=== PATIENT | male | born 1960 | race Caucasian/White ===

== ENCOUNTER 2016-06-27 10:57 | Emergency (ER) | payer OTHER ==
--- NOTE | 2016-06-27 11:47 | EDDOCDS ---
Physician Documentation [facility] Name: Ramos Corrigan Age: 55 yrs Sex: Male : 1960 Arrival Date: 06/27/2016 Time: 10:57 Bed TR8 Private MD: Roxana Lopez A Disposition: 06/27/16 11:39 Discharged to Home/Self Care. Impression: Acute nasopharyngitis [common cold]. - Condition is Stable. - Discharge Instructions: Upper Respiratory Infection, Adult, Cough, Adult, [id number]. - Prescriptions for Guaifenesin- DM 10-100 mg/5 mL Oral Liquid - take 10 milliliter by ORAL route every 6 hours As needed; 120 milliliter. Afrin (oxymetazoline) 0.05 % Nasal Aerosol, [place] - spray 2 sprays by INTRANASAL route 2 times per day use only for 5 days.; 1 Container. benzonatate 200 mg Oral Capsule - take 1 capsule by ORAL route 3 times per day As needed; 30 capsule. - Medication Reconciliation form. - Follow up: Roxana Lopez; When: Call to arrange an appointment; Reason: Recheck today's complaints, Continuance of care. - Problem is new. - Symptoms are unchanged. Historical: - Allergies: no known allergies; - Home Meds: 1. Advair Diskus 250-50 mcg/dose Inhl dsdv 1 puff 2 times per day 2. aspirin 81 mg Oral TbEC 1 tab once daily 3. atenolol 25 mg Oral tab 1 tab once daily 4. atorvastatin 40 mg oral tab 1 tab once daily 5. Flomax 0.4 mg Oral cp24 1 cap once daily 6. hydroxyzine HCl 25 mg Oral tab 1 tab nightly 7. lisinopril 2.5 mg Oral tab 1 tab once daily 8. metformin 500 mg oral tr24 twice a day 9. omeprazole 20 mg Oral cpDR 1 cap once daily 10. Singulair 10 mg Oral tab 1 tab once daily 11. tramadol 50 mg Oral tab every 6 hours 1-2 tabs 12. Ventolin Rotahaler/Rotacaps Inhl 200 mcg as needed 13. Zyrtec 10 mg Oral tab 1 tab once daily - PMHx: COPD; Diabetes - NIDDM: controlled; Hypercholesterolemia; Hypertension; BPH; Kidney stones; - PSHx: Gall Bladder Removal; - Social history: Smoking status: Patient states former smoker of tobacco. No barriers to communication noted, The patient speaks fluent Sami, Speaks appropriately for age. - Family history: Not pertinent. - : The pt / caregiver states he / she is not on anticoagulants. Home medication list is obtained from the patient. - Exposure Risk Screening:: None identified. Vital Signs: 06/27 10:58 BP 113 / 71; Pulse 85; Resp 18; Temp 98.4(O); Pulse Ox 96% on R/A; Weight 81.65 kg / ct3 180.01 lbs (R); Height 5 ft. 6 in. (167.64 cm) (R); Pain 710; 10:58 Body Mass Index 29.05 (81.65 kg, 167.64 cm) ct3 Signatures: Aminta Landin, RN RN Bia Mensah RN RN kr3 Raghav Veloz, PALuis ArmandoC PA-C cc10 BERTA
--- NOTE | 2016-06-27 11:47 | EDDOCDS ---
Nurse's Notes [facility] Name: Ramos Corrigan Age: 55 yrs Sex: Male : 1960 Arrival Date: 06/27/2016 Time: 10:57 Bed TR8 Private MD: Roxana Lopez A Diagnosis: Acute nasopharyngitis [common cold] Presentation: 06/27 11:02 Presenting complaint: Patient states: headache, earache and stuffed up since last srm night. left ear worse than right. Adult Sepsis Screening: The patient does not have new or worsening altered mentation. Patient's respiratory rate is less than 22. Systolic blood pressure is greater than 100. Patient has a qSOFA score of 0- Negative Sepsis Screen. Suicide/Homicide risk assessment- the patient denies having any suicidal and/or homicidal ideations and does not present with any other emotional, behavioral or mental health complaints. 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 Transition of care: patient was not received from another setting of care. 11:02 Acuity: TRUMAN Level 4 [facility] 11:02 Method Of Arrival: Walkin/Carried/Asstd srm Triage Assessment: 11:04 General: Appears in no apparent distress, Behavior is appropriate for age, cooperative. srm Pain: Pain currently is 7 out of 10 on a pain scale. HIV screening NA for this visit Offered previously. Historical: - Allergies: no known allergies; - Home Meds: 1. Advair Diskus 250-50 mcg/dose Inhl dsdv 1 puff 2 times per day 2. aspirin 81 mg Oral TbEC 1 tab once daily 3. atenolol 25 mg Oral tab 1 tab once daily 4. atorvastatin 40 mg oral tab 1 tab once daily 5. Flomax 0.4 mg Oral cp24 1 cap once daily 6. hydroxyzine HCl 25 mg Oral tab 1 tab nightly 7. lisinopril 2.5 mg Oral tab 1 tab once daily 8. metformin 500 mg oral tr24 twice a day 9. omeprazole 20 mg Oral cpDR 1 cap once daily 10. Singulair 10 mg Oral tab 1 tab once daily 11. tramadol 50 mg Oral tab every 6 hours 1-2 tabs 12. Ventolin Rotahaler/Rotacaps Inhl 200 mcg as needed 13. Zyrtec 10 mg Oral tab 1 tab once daily - PMHx: COPD; Diabetes - NIDDM: controlled; Hypercholesterolemia; Hypertension; BPH; Kidney stones; - PSHx: Gall Bladder Removal; - Social history: Smoking status: Patient states former smoker of tobacco. No barriers to communication noted, The patient speaks fluent [place], Speaks appropriately for age. - Family history: Not pertinent. - : The pt / caregiver states he / she is not on anticoagulants. Home medication list is obtained from the patient. - Exposure Risk Screening:: None identified. Screenin:45 Screening information is obtained from the patient. Fall risk: No risks identified. kr3 Assistance ADL's: requires no assistance with activities of daily living. Abuse/DV Screen: The patient / caregiver reports he/she is: not in a situation that causes fear, pain or injury. Nutritional screening: No deficits noted. Advance Directives: Currently, there is no health care proxy. home support is adequate. Assessment: 11:46 Reassessment: Patient appears in no apparent distress at this time. Respiratory: Airway kr3 is patent Respiratory effort is even. Derm: Skin is normal. Vital Signs: 10:58 BP 113 / 71; Pulse 85; Resp 18; Temp 98.4(O); Pulse Ox 96% on R/A; Weight 81.65 kg (R); ct3 Height 5 ft. 6 in. (167.64 cm) (R); Pain 7/10; 10:58 Body Mass Index 29.05 (81.65 kg, 167.64 cm) ct3 Vitals: 10:58 Log In Time: June 27, 2016 at 10:56. ct3 ED Course: 10:58 Patient visited by Dulce Sandoval PCA. ct3 10:58 Roxana Lopez is Private Physician. ct3 10:58 Patient moved to Waiting ct3 10:59 Patient moved to Pre RCE ct3 11:02 Triage Initiated srm 11:30 Patient moved to Triage 3 ar3 11:32 [facility] cc[facility] 11:32 Damien Shaw MD is Attending Physician. cc10 11:34 Patient visited by Raghav Veloz PA-C. cc10 11:34 Patient visited by Raghav Veloz PA-C. cc10 11:39 Roxana Lopez is Referral Physician. cc10 11:45 The patient / caregiver is instructed regarding the plan of care and ED course. Patient kr3 has correct armband on for positive identification. 11:45 No IV's were initiated during this patient's visit. No procedures done that require kr3 assistance. 11:46 Patient moved to TR8 ar3 Order Results: There are currently no results for this order. Outcome: 11:39 Discharge ordered by Provider. cc10 11:45 Discharge Assessment: patient administered narcotics - no. The following High Risk kr3 Discharge criteria are identified: None. Discharged to home ambulatory. Condition: stable. Discharge instructions given to patient, Instructed on discharge instructions, follow up and referral plans. medication usage, Demonstrated understanding of instructions, medications, Pt was receptive of discharge instructions/ teaching. Prescriptions given X 3. No special radiology studies were completed. Property sent home with patient. 11:46 Patient left the ED. kr3 Signatures: Aminta Landin, RN RN srm Bia Gregory RN RN kr3 La Ramírez, BLACKING MACHINE OPERATOR BLACKING MACHINE OPERATOR ar3 Dulce Sandoval, BLACKING MACHINE OPERATOR BLACKING MACHINE OPERATOR ct3 Raghav Veloz PA-C PAKatelin cc10 MTDD
--- NOTE | 2016-06-29 12:47 | EDDOCDS ---
Nurse's Notes [facility] Name: Ramos Corrigan Age: 55 yrs Sex: Male : 1960 Arrival Date: 06/27/2016 Time: 10:57 Bed TR8 Private MD: Roxana Lopez A Diagnosis: Acute nasopharyngitis [common cold] Presentation: 06/27 11:02 Presenting complaint: Patient states: headache, earache and stuffed up since last srm night. left ear worse than right. Adult Sepsis Screening: The patient does not have new or worsening altered mentation. Patient's respiratory rate is less than 22. Systolic blood pressure is greater than 100. Patient has a qSOFA score of 0- Negative Sepsis Screen. Suicide/Homicide risk assessment- the patient denies having any suicidal and/or homicidal ideations and does not present with any other emotional, behavioral or mental health complaints. 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 Transition of care: patient was not received from another setting of care. 11:02 Acuity: TRUMAN Level 4 [facility] 11:02 Method Of Arrival: Walkin/Carried/Asstd srm Triage Assessment: 11:04 General: Appears in no apparent distress, Behavior is appropriate for age, cooperative. srm Pain: Pain currently is 7 out of 10 on a pain scale. HIV screening NA for this visit Offered previously. Historical: - Allergies: no known allergies; - Home Meds: 1. Advair Diskus 250-50 mcg/dose Inhl dsdv 1 puff 2 times per day 2. aspirin 81 mg Oral TbEC 1 tab once daily 3. atenolol 25 mg Oral tab 1 tab once daily 4. atorvastatin 40 mg oral tab 1 tab once daily 5. Flomax 0.4 mg Oral cp24 1 cap once daily 6. hydroxyzine HCl 25 mg Oral tab 1 tab nightly 7. lisinopril 2.5 mg Oral tab 1 tab once daily 8. metformin 500 mg oral tr24 twice a day 9. omeprazole 20 mg Oral cpDR 1 cap once daily 10. Singulair 10 mg Oral tab 1 tab once daily 11. tramadol 50 mg Oral tab every 6 hours 1-2 tabs 12. Ventolin Rotahaler/Rotacaps Inhl 200 mcg as needed 13. Zyrtec 10 mg Oral tab 1 tab once daily - PMHx: COPD; Diabetes - NIDDM: controlled; Hypercholesterolemia; Hypertension; BPH; Kidney stones; - PSHx: Gall Bladder Removal; - Social history: Smoking status: Patient states former smoker of tobacco. No barriers to communication noted, The patient speaks fluent Nauruan, Speaks appropriately for age. - Family history: Not pertinent. - : The pt / caregiver states he / she is not on anticoagulants. Home medication list is obtained from the patient. - Exposure Risk Screening:: None identified. Screenin:45 Screening information is obtained from the patient. Fall risk: No risks identified. kr3 Assistance ADL's: requires no assistance with activities of daily living. Abuse/DV Screen: The patient / caregiver reports he/she is: not in a situation that causes fear, pain or injury. Nutritional screening: No deficits noted. Advance Directives: Currently, there is no health care proxy. home support is adequate. Assessment: 11:46 Reassessment: Patient appears in no apparent distress at this time. Respiratory: Airway kr3 is patent Respiratory effort is even. Derm: Skin is normal. Vital Signs: 10:58 BP 113 / 71; Pulse 85; Resp 18; Temp 98.4(O); Pulse Ox 96% on R/A; Weight 81.65 kg (R); ct3 Height 5 ft. 6 in. (167.64 cm) (R); Pain 7/10; 10:58 Body Mass Index 29.05 (81.65 kg, 167.64 cm) ct3 Vitals: 10:58 Log In Time: June 27, 2016 at 10:56. ct3 ED Course: 10:58 Patient visited by Dulce Sandoval PCA. ct3 10:58 Roxana Lopez is Private Physician. ct3 10:58 Patient moved to Waiting ct3 10:59 Patient moved to Pre RCE ct3 11:02 Triage Initiated srm 11:30 Patient moved to Triage 3 ar3 11:32 [facility] Vel[facility] cc[facility] 11:32 Damien Shaw MD is Attending Physician. cc10 11:34 Patient visited by Raghav eVloz PA-C. cc10 11:34 Patient visited by Raghav Veloz PA-C. cc10 11:39 Roxana Lopez is Referral Physician. cc10 11:45 The patient / caregiver is instructed regarding the plan of care and ED course. Patient kr3 has correct armband on for positive identification. 11:45 No IV's were initiated during this patient's visit. No procedures done that require kr3 assistance. 11:46 Patient moved to TR8 ar3 11:49 [facility] Payment Agreement was scanned into [employer] and attached to record. jp5 15:41 T-Sheet-- Draft Copy was scanned into [employer] and attached to record. gb Order Results: There are currently no results for this order. Outcome: 11:39 Discharge ordered by Provider. cc10 11:45 Discharge Assessment: patient administered narcotics - no. The following High Risk kr3 Discharge criteria are identified: None. Discharged to home ambulatory. Condition: stable. Discharge instructions given to patient, Instructed on discharge instructions, follow up and referral plans. medication usage, Demonstrated understanding of instructions, medications, Pt was receptive of discharge instructions/ teaching. Prescriptions given X 3. No special radiology studies were completed. Property sent home with patient. 11:46 Patient left the ED. kr3 Signatures: Aminta Landin, RN RN [facility] Brigida Montenegro, Reg Reg gb Bia Gregory,MARITZA SALAS kr3 La Ramírez, SOLE LEATHER CUTTING MACHINE OPERATOR SOLE LEATHER CUTTING MACHINE OPERATOR ar3 Dulce Sandoval, SOLE LEATHER CUTTING MACHINE OPERATOR SOLE LEATHER CUTTING MACHINE OPERATOR ct3 Raghav Veloz PA-C PA-C cc10 Erik Everett jp5 Chart Complete MTDD
--- NOTE | 2016-06-29 12:47 | EDDOCDS ---
Physician Documentation [facility] Name: Ramos Corrigan Age: 55 yrs Sex: Male : 1960 Arrival Date: 06/27/2016 Time: 10:57 Bed TR8 Private MD: Roaxna Lopez A Disposition: 06/27/16 11:39 Discharged to Home/Self Care. Impression: Acute nasopharyngitis [common cold]. - Condition is Stable. - Discharge Instructions: Upper Respiratory Infection, Adult, Cough, Adult, [id number]. - Prescriptions for Guaifenesin- DM 10-100 mg/5 mL Oral Liquid - take 10 milliliter by ORAL route every 6 hours As needed; 120 milliliter. Afrin (oxymetazoline) 0.05 % Nasal Aerosol, [place] - spray 2 sprays by INTRANASAL route 2 times per day use only for 5 days.; 1 Container. benzonatate 200 mg Oral Capsule - take 1 capsule by ORAL route 3 times per day As needed; 30 capsule. - Medication Reconciliation form. - Follow up: Roxana Lopez; When: Call to arrange an appointment; Reason: Recheck today's complaints, Continuance of care. - Problem is new. - Symptoms are unchanged. Historical: - Allergies: no known allergies; - Home Meds: 1. Advair Diskus 250-50 mcg/dose Inhl dsdv 1 puff 2 times per day 2. aspirin 81 mg Oral TbEC 1 tab once daily 3. atenolol 25 mg Oral tab 1 tab once daily 4. atorvastatin 40 mg oral tab 1 tab once daily 5. Flomax 0.4 mg Oral cp24 1 cap once daily 6. hydroxyzine HCl 25 mg Oral tab 1 tab nightly 7. lisinopril 2.5 mg Oral tab 1 tab once daily 8. metformin 500 mg oral tr24 twice a day 9. omeprazole 20 mg Oral cpDR 1 cap once daily 10. Singulair 10 mg Oral tab 1 tab once daily 11. tramadol 50 mg Oral tab every 6 hours 1-2 tabs 12. Ventolin Rotahaler/Rotacaps Inhl 200 mcg as needed 13. Zyrtec 10 mg Oral tab 1 tab once daily - PMHx: COPD; Diabetes - NIDDM: controlled; Hypercholesterolemia; Hypertension; BPH; Kidney stones; - PSHx: Gall Bladder Removal; - Social history: Smoking status: Patient states former smoker of tobacco. No barriers to communication noted, The patient speaks fluent Sami, Speaks appropriately for age. - Family history: Not pertinent. - : The pt / caregiver states he / she is not on anticoagulants. Home medication list is obtained from the patient. - Exposure Risk Screening:: None identified. Vital Signs: 06/27 10:58 BP 113 / 71; Pulse 85; Resp 18; Temp 98.4(O); Pulse Ox 96% on R/A; Weight 81.65 kg / ct3 180.01 lbs (R); Height 5 ft. 6 in. (167.64 cm) (R); Pain 7; 10:58 Body Mass Index 29.05 (81.65 kg, 167.64 cm) ct3 MDM: 11:49 [facility] Payment Agreement was scanned into [employer] and attached to record. jp5 11:49 Financial registration complete. jp5 15:41 T-Sheet-- Draft Copy was scanned into [employer] and attached to record. gb Signatures: Aminta Landin, RN RN srm Brigida Montenegro, Reg Reg gb Bia Gregory,MARITZA RN kr3 Raghav Veloz, PA-Moisés PA-C cc10 Erik Everett jp5 The chart was reviewed and I authenticate all verbal orders and agree with the evaluation and treatment provided.Attachments: 11:49 [facility] Payment Agreement jp5 15:41 T-Sheet-- Draft Copy gb Chart Complete MTDD
--- NOTE | 2016-06-29 12:47 | EDDOCDS ---
Physician Documentation [facility] Name: Ramos Corrigan Age: 55 yrs Sex: Male : 1960 Arrival Date: 06/27/2016 Time: 10:57 Bed TR8 Private MD: Roxana Lopez A Disposition: 06/27/16 11:39 Discharged to Home/Self Care. Impression: Acute nasopharyngitis [common cold]. - Condition is Stable. - Discharge Instructions: Upper Respiratory Infection, Adult, Cough, Adult, [id number]. - Prescriptions for Guaifenesin- DM 10-100 mg/5 mL Oral Liquid - take 10 milliliter by ORAL route every 6 hours As needed; 120 milliliter. Afrin (oxymetazoline) 0.05 % Nasal Aerosol, [place] - spray 2 sprays by INTRANASAL route 2 times per day use only for 5 days.; 1 Container. benzonatate 200 mg Oral Capsule - take 1 capsule by ORAL route 3 times per day As needed; 30 capsule. - Medication Reconciliation form. - Follow up: Roxana Lopez; When: Call to arrange an appointment; Reason: Recheck today's complaints, Continuance of care. - Problem is new. - Symptoms are unchanged. Historical: - Allergies: no known allergies; - Home Meds: 1. Advair Diskus 250-50 mcg/dose Inhl dsdv 1 puff 2 times per day 2. aspirin 81 mg Oral TbEC 1 tab once daily 3. atenolol 25 mg Oral tab 1 tab once daily 4. atorvastatin 40 mg oral tab 1 tab once daily 5. Flomax 0.4 mg Oral cp24 1 cap once daily 6. hydroxyzine HCl 25 mg Oral tab 1 tab nightly 7. lisinopril 2.5 mg Oral tab 1 tab once daily 8. metformin 500 mg oral tr24 twice a day 9. omeprazole 20 mg Oral cpDR 1 cap once daily 10. Singulair 10 mg Oral tab 1 tab once daily 11. tramadol 50 mg Oral tab every 6 hours 1-2 tabs 12. Ventolin Rotahaler/Rotacaps Inhl 200 mcg as needed 13. Zyrtec 10 mg Oral tab 1 tab once daily - PMHx: COPD; Diabetes - NIDDM: controlled; Hypercholesterolemia; Hypertension; BPH; Kidney stones; - PSHx: Gall Bladder Removal; - Social history: Smoking status: Patient states former smoker of tobacco. No barriers to communication noted, The patient speaks fluent Lao, Speaks appropriately for age. - Family history: Not pertinent. - : The pt / caregiver states he / she is not on anticoagulants. Home medication list is obtained from the patient. - Exposure Risk Screening:: None identified. Vital Signs: 06/27 10:58 BP 113 / 71; Pulse 85; Resp 18; Temp 98.4(O); Pulse Ox 96% on R/A; Weight 81.65 kg / ct3 180.01 lbs (R); Height 5 ft. 6 in. (167.64 cm) (R); Pain 7; 10:58 Body Mass Index 29.05 (81.65 kg, 167.64 cm) ct3 MDM: 11:49 [facility] Payment Agreement was scanned into [employer] and attached to record. jp5 11:49 Financial registration complete. jp5 15:41 T-Sheet-- Draft Copy was scanned into [employer] and attached to record. gb Signatures: Aminta Landin, RN RN srm Brigida Montenegro, Reg Reg gb Bia Gregory,MARITZA RN kr3 Raghav Veloz, PA-Moisés PA-C cc10 Erik Everett jp5 The chart was reviewed and I authenticate all verbal orders and agree with the evaluation and treatment provided.Attachments: 11:49 [facility] Payment Agreement jp5 15:41 T-Sheet-- Draft Copy gb Chart Complete MTDD
== END 2016-06-27 11:46 | disposition home or self-care (01) ==
LOC: M ED 10:57
DX: J00 Acute nasopharyngitis [common cold] (principal); E11.9 Type 2 diabetes mellitus without complications; J44.9 Chronic obstructive pulmonary disease, unspecified; I10 Essential (primary) hypertension; E78.00 Pure hypercholesterolemia, unspecified; N40.0 Benign prostatic hyperplasia without lower urinary tract symptoms; Z87.891 Personal history of nicotine dependence; Z87.442 Personal history of urinary calculi; Z79.899 Other long term (current) drug therapy; Z79.51 Long term (current) use of inhaled steroids; Z79.82 Long term (current) use of aspirin; Z79.84 Long term (current) use of oral hypoglycemic drugs

== ENCOUNTER → 2016-07-27 | Outpatient (CLI) | payer OTHER ==
--- NOTE | 2016-07-28 04:18 | REP ---
Clinical: Lung screening. Technique: Axial low-dose noncontrast imaging from the thoracic inlet to the upper abdomen obtained and viewed in lung window settings only. Comparison: 10/19/2015 Findings: A 6.6 x 3.5 cm solitary bullus is again identified in the lateral left lower lobe along with mild bibasilar chronic scarring and subtle bronchiectasis unchanged from prior examination. No significant pulmonary parenchymal consolidation, nodule or mass lesion appreciated. No obvious pleural effusion/reaction. Mediastinum is grossly unremarkable again demonstrating partially calcified lymph nodes consistent with prior granulomas disease. Impression: 1. 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 2. No suspicious pulmonary parenchymal consolidation, nodule or mass lesion. Signed by Qamar Cardenas MD 07/28/2016 04:10 A
== END ==
LOC: M RAD 12:05
PROVIDERS: ATTEND Internal Medicine Pulmonary Disease
DX: F17.210 Nicotine dependence, cigarettes, uncomplicated (principal)

== ENCOUNTER → 2017-04-23 | Outpatient (CLI) | payer OTHER ==
[2017-04-23 12:44] LABS: FOLATE 15.6 NG/ML (>5.4)
[2017-04-23 13:01] LABS: ALBUMIN 3.5 GM/DL (3.2-5.2); ALBUMIN/GLOBULIN RATIO 0.97 (1.00-1.93); ALKALINE PHOSPHATASE 74 U/L (45-117); ALT/SGPT 32 U/L (12-78); ANION GAP 7 MEQ/L (8-16); AST/SGOT 17 U/L (7-37); BILIRUBIN,TOTAL 0.4 MG/DL (0.2-1.0); BLOOD UREA NITROGEN 14 MG/DL (7-18); CALCIUM LEVEL 9.5 MG/DL (8.5-10.1); CARBON DIOXIDE LEVEL 29 MEQ/L (21-32); CHLORIDE LEVEL 101 MEQ/L (98-107); CHOLESTEROL LEVEL 162 MG/DL (<200); CREATININE FOR GFR 0.91 MG/DL (0.70-1.30); GLOMERULAR FILTRATION RATE > 60.0 (>56); GLUCOSE, FASTING 105 MG/DL (70-105); POTASSIUM SERUM 4.6 MEQ/L (3.5-5.1); SODIUM LEVEL 137 MEQ/L (136-145); TOTAL PROTEIN 7.1 GM/DL (6.4-8.2); TRIGLYCERIDES LEVEL 200 MG/DL (<150)
== END ==
LOC: M LAB 11:33
PROVIDERS: ATTEND Family Medicine
DX: E55.9 Vitamin D deficiency, unspecified (principal); D52.9 Folate deficiency anemia, unspecified; E11.9 Type 2 diabetes mellitus without complications; E78.5 Hyperlipidemia, unspecified

== ENCOUNTER → 2017-10-03 | Outpatient (CLI) | payer OTHER ==
[2017-10-03 13:33] LABS: APPEARANCE, URINE CLEAR (CLEAR); BACTERIA, URINE AUTO NEGATIVE (NEGATIVE); BILIRUBIN, URINE AUTO NEGATIVE (NEGATIVE); BLOOD, URINE BLOOD NEGATIVE (NEGATIVE); COLOR, URINE YELLOW (YELLOW); GLUCOSE, URINE (UA) AUTO NEGATIVE (NEGATIVE); KETONE, URINE AUTO NEGATIVE (NEGATIVE); LEUKOCYTE ESTERASE, URINE AUTO NEGATIVE (NEGATIVE); MUCUS, URINE SMALL (NEGATIVE); NITRITE, URINE AUTO NEGATIVE (NEGATIVE); PROTEIN, URINE AUTO NEGATIVE (NEGATIVE); RBC, URINE AUTO 1 /HPF (0-3); SPECIFIC GRAVITY URINE AUTO 1.018 (1.002-1.035); SQUAMOUS EPITHELIAL CELL UR AU 0 /HPF (0-6); UROBILINOGEN, URINE AUTO 0.2 mg/dL (0.0-2.0); WBC, URINE AUTO 1 /HPF (0-3)
[2017-10-03 13:49] LABS: ALBUMIN 3.3 GM/DL (3.2-5.2); ALBUMIN/GLOBULIN RATIO 0.92 (1.00-1.93); ALKALINE PHOSPHATASE 78 U/L (45-117); ALT/SGPT 25 U/L (12-78); ANION GAP 6 MEQ/L (8-16); AST/SGOT 16 U/L (7-37); BASO # 0.1 10^3/uL (0.0-0.2); BASO % 0.8 % (0.0-1.0); BILIRUBIN,TOTAL 0.2 MG/DL (0.2-1.0); BLOOD UREA NITROGEN 12 MG/DL (7-18); CALCIUM LEVEL 8.7 MG/DL (8.5-10.1); CARBON DIOXIDE LEVEL 28 MEQ/L (21-32); CHLORIDE LEVEL 106 MEQ/L (98-107); CHOLESTEROL LEVEL 154 MG/DL (<200); CHOLESTEROL RISK RATIO 4.967 (<5); CREATININE FOR GFR 0.96 MG/DL (0.70-1.30); EOS # 0.2 10^3/uL (0.0-0.50); EOS % 2.5 % (0.0-3.0); FREE T4 0.94 NG/DL (0.76-1.46); GLOMERULAR FILTRATION RATE > 60.0 (>56); GLUCOSE, FASTING 95 MG/DL (70-100); HDL CHOLESTEROL 31 MG/DL (>40); HEMATOCRIT 42.4 % (42.0-52.0); HEMOGLOBIN 14.3 g/dl (13.5-17.5); IMMATURE GRANULOCYTE % 0.5 % (0-3.0); LDL CHOLESTEROL 84.2 MG/DL (<100); LYMPH # 2.1 10^3/uL (1.5-4.5); LYMPH % 25.2 % (24.0-44.0); MEAN CORPUSCULAR HEMOGLOBIN 29.4 pg (27.0-33.0); MEAN CORPUSCULAR HGB CONC 33.7 g/dl (32.0-36.5); MEAN CORPUSCULAR VOLUME 87.2 fl (80.0-96.0); MONO # 0.5 10^3/uL (0.0-0.8); MONO % 5.9 % (0.0-5.0); NEUTROPHILS # 5.4 10^3/uL (1.8-7.7); NEUTROPHILS % 65.1 % (36.0-66.0); NON-HDL-C 123 MG/DL; PLATELET COUNT, AUTOMATED 249 10^3/uL (150-450); POTASSIUM SERUM 4.7 MEQ/L (3.5-5.1); RED BLOOD COUNT 4.86 10^6/uL (4.30-6.10); RED CELL DISTRIBUTION WIDTH 13.6 % (11.5-14.5); SODIUM LEVEL 140 MEQ/L (136-145); TOTAL PROTEIN 6.9 GM/DL (6.4-8.2); TRIGLYCERIDES LEVEL 194 MG/DL (<150); WHITE BLOOD COUNT 8.3 10^3/uL (4.0-10.0)
[2017-10-03 13:54] LABS: ESTIMATED AVERAGE GLUCOSE 131 MG/DL (60-110); HEMOGLOBIN A1c 6.2 %
[2017-10-03 14:05] LABS: TOTAL 25(OH) VITAMIN D 25.6 NG/ML (30.0-100.0)
[2017-10-03 14:07] LABS: FOLATE 8.9 NG/ML (>5.4)
== END ==
LOC: M SMT 08:41
DX: D52.9 Folate deficiency anemia, unspecified (principal); E78.5 Hyperlipidemia, unspecified; I10 Essential (primary) hypertension; E55.9 Vitamin D deficiency, unspecified; E11.9 Type 2 diabetes mellitus without complications; K21.9 Gastro-esophageal reflux disease without esophagitis
CPT/HCPCS: 82746

== ENCOUNTER → 2018-02-27 | Outpatient (CLI) | payer OTHER | LOC: M RAD 07:38 | DX: Z12.2 Encounter for screening for malignant neoplasm of respiratory organs (principal); J44.9 Chronic obstructive pulmonary disease, unspecified; Z87.891 Personal history of nicotine dependence | CPT/HCPCS: G0297 ==

== ENCOUNTER 2018-10-08 20:39 | Emergency (ER) | payer OTHER ==
[~2018-10-08] VITALS: Ht 167.6 cm; Wt 90.8 kg
[2018-10-08 21:19] LABS: BASO # 0.1 10^3/uL (0.0-0.2); BASO % 0.5 % (0.0-1.0); EOS # 0.2 10^3/uL (0.0-0.50); EOS % 1.6 % (0.0-3.0); HEMATOCRIT 40.7 % (42.0-52.0); HEMOGLOBIN 13.9 g/dl (13.5-17.5); LYMPH # 2.2 10^3/uL (1.5-4.5); LYMPH % 22.1 % (24.0-44.0); MEAN CORPUSCULAR HEMOGLOBIN 28.8 pg (27.0-33.0); MEAN CORPUSCULAR HGB CONC 34.2 g/dl (32.0-36.5); MEAN CORPUSCULAR VOLUME 84.3 fl (80.0-96.0); MONO # 0.6 10^3/uL (0.0-0.8); MONO % 5.6 % (0.0-5.0); NEUTROPHILS # 6.8 10^3/uL (1.8-7.7); NEUTROPHILS % 69.7 % (36.0-66.0); PLATELET COUNT, AUTOMATED 244 10^3/uL (150-450); RED BLOOD COUNT 4.83 10^6/uL (4.30-6.10); WHITE BLOOD COUNT 9.8 10^3/uL (4.0-10.0)
[2018-10-08] MEDS ORDERED: OXYB5TAB10 PO (21:32)
[2018-10-08] MEDS ORDERED: ATEN25TA PO (21:32)
[2018-10-08] MEDS ORDERED: VITA500C24 PO (21:32)
[2018-10-08] MEDS ORDERED: CINN500C15 PO (21:32)
[2018-10-08] MEDS ORDERED: CLAR10CA3 PO (21:32)
[2018-10-08 21:39] LABS: ALBUMIN 3.1 GM/DL (3.2-5.2); ALT/SGPT 49 U/L (12-78); BILIRUBIN,DIRECT < 0.1 MG/DL (0.0-0.2); BILIRUBIN,TOTAL 0.3 MG/DL (0.2-1.0); BLOOD UREA NITROGEN 12 MG/DL (7-18); CALCIUM LEVEL 9.9 MG/DL (8.5-10.1); CARBON DIOXIDE LEVEL 26 MEQ/L (21-32); CHLORIDE LEVEL 98 MEQ/L (98-107); CPK CREATINE PHOSPHOKINASE 154 U/L (39-308); CREATININE FOR GFR 0.95 MG/DL (0.70-1.30); GLOMERULAR FILTRATION RATE > 60.0 (>56); GLUCOSE, FASTING 304 MG/DL (70-100); LIPASE 675 U/L (73-393); MB/CK RELATIVE INDEX 0.91 (< OR =4); POTASSIUM SERUM 4.2 MEQ/L (3.5-5.1); SODIUM LEVEL 133 MEQ/L (136-145); TOTAL PROTEIN 7.1 GM/DL (6.4-8.2); TROPONIN I < 0.02 NG/ML (< 0.10)
[2018-10-08] MEDS ORDERED: ASPI81CH48 PO (21:49)
[2018-10-08] MEDS ORDERED: CVS1500T PO (21:49)
[2018-10-08] MEDS ORDERED: METF-877 PO (21:49)
[2018-10-08] MEDS ORDERED: OMEP-218 PO (21:49)
[2018-10-08] MEDS ORDERED: MONT10TA2 PO (21:49)
[2018-10-08] MEDS ORDERED: ADV500INH INH (21:49)
[2018-10-08] MEDS ORDERED: HYDR-3363 PO (21:49)
[2018-10-08] MEDS ORDERED: ATOR40TA75 PO (21:49)
[2018-10-08] MEDS ORDERED: LOSA25TA14 PO (21:49)
[2018-10-08] MEDS ORDERED: METOCLOPRAMIDE INJ 10MG/2ML VIAL (J2765) IV ONE (22:30)
[2018-10-08] MEDS ORDERED: NS 1,000 ML IV ONE (22:30)
[2018-10-08] MEDS ORDERED: MORPHINE 4 MG/ML 1ML VIAL/SYRINGE (J2270) IV ONE (22:30)
[2018-10-08 22:40] LABS: INR 0.91; PROTHROMBIN TIME 12.3 SECONDS (12.1-14.4)
[2018-10-08] MEDS ORDERED: ISOVUE-370 76% 100ML VIAL (Q9967) As Ordered ONE (22:55)
[2018-10-08] MEDS ORDERED: IPRATROPIUM 0.5MG/ALBUTEROL 2.5MG INH SOL UD 3ML (DUONEB)(J7620) NEB ONE (23:15)
[2018-10-08] MEDS ORDERED: dexameTHASONE 20 MG/5 ML VIAL (J1100) IV ONE (23:15)
--- NOTE | 2018-10-08 23:49 | REPVR ---
EXAM: CT Abdomen and Pelvis With Contrast EXAM DATE/TIME: 10/08/2018 10:25 PM CLINICAL HISTORY: 58 years old, male; Abdominal pain; Generalized; Additional info: Pain/distension TECHNIQUE: Imaging protocol: Axial computed tomography images of the abdomen and pelvis with intravenous contrast. Coronal and sagittal reformatted images were created and reviewed. Radiation optimization: All CT scans at this facility use at least one of these dose optimization techniques: automated exposure control; mA and/or kV adjustment per patient size (includes targeted exams where dose is matched to clinical indication); or iterative reconstruction. Contrast material: ISO; Contrast volume: 100 ml; Contrast route: AC; COMPARISON: No relevant prior studies available. FINDINGS: Lungs: Large bulla left lower lobe. ABDOMEN: Liver: There is a diffuse decrease in hepatic parenchymal density, consistent with fatty infiltration. Examination of the liver demonstrates a mild lobular surface contour, and enlargement of the left and caudate lobes, findings which may be consistent with cirrhosis and should be correlated clinically. Gallbladder and bile ducts: There has been a cholecystectomy. Pancreas: Increased size of the pancreatic head and uncinate process measuring 5 x 3.9 x 4.3 cm without a discrete differentially attenuating mass. Further evaluation with pre-and postcontrast MRI suggested. Spleen: The spleen demonstrates punctate calcifications, consistent with remote granulomatous organism exposure. Adrenals: There is a focal hypodense mass in the left adrenal gland measuring 1.8 cm, consistent in appearance and density with a benign adrenal adenoma. Kidneys and ureters: Bilateral renal cysts measure up to 1.2 cm in the right kidney. Stomach and bowel: Mild inflammatory changes adjacent to the duodenal sweep may indicate the presence of duodenitis. Duodenal diverticulum. Appendix: No evidence of appendicitis. PELVIS: Bladder: Unremarkable as visualized. Reproductive: The prostate gland demonstrates moderate hyperplasia. ABDOMEN and PELVIS: Intraperitoneal space: Normal. No free air. No significant fluid collection. Bones/joints: The spine demonstrates mild degenerative changes. Mild retrolisthesis of L5 on S1. Soft tissues: Unremarkable. Vasculature: The aorta demonstrates mild atherosclerotic calcification. Lymph nodes: Normal. No enlarged lymph nodes. IMPRESSION: 1. There is a diffuse decrease in hepatic parenchymal density, consistent with fatty infiltration. 2. Examination of the liver demonstrates a mild lobular surface contour, and enlargement of the left and caudate lobes, findings which may be consistent with cirrhosis and should be correlated clinically. 3. Mild inflammatory changes adjacent to the duodenal sweep may indicate the presence of duodenitis. 4. There is a focal hypodense mass in the left adrenal gland measuring 1.8 cm, consistent in appearance and density with a benign adrenal adenoma. 5. There has been a cholecystectomy. 6. Moderate prostatic hyperplasia. 7. Increased size of the pancreatic head and uncinate process measuring 5 x 3.9 x 4.3 cm without a discrete differentially attenuating mass. Further evaluation with pre-and postcontrast MRI suggested. Electronically signed by: Jake Ramey On 10/08/2018 23:48:42 PM
[2018-10-09] MEDS ORDERED: SUCRALFATE SUSP 1GM/10ML UD PO ONE
[2018-10-09] MEDS ORDERED: PANTOPRAZOLE 40MG INJ (PROTONIX) (C9113) IV ONE
[2018-10-09] MEDS ORDERED: GI COCKTAIL 50ML BTL(HYOSCYAMINE/MAALOX/LIDOCAINE VISCOUS)(1:3:1) PO ONE
[2018-10-09 01:33] VITALS: BP 117/66
[2018-10-09] MEDS ORDERED: SUCR1SS PO (01:51)
--- NOTE | 2018-10-09 18:16 | ED PDOC ---
Post-Departure Follow-Up dr gaspar faxed formal report of t abd/p for fu Konstantin Alexander MD October 09, 2018 18:16
--- NOTE | 2018-10-09 19:34 | ECGEPIP ---
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
== END 2018-10-09 02:12 | disposition home or self-care (01) ==
LOC: M ED 20:39
DX: K29.70 Gastritis, unspecified, without bleeding (principal); K29.80 Duodenitis without bleeding; R93.5 Abnormal findings on diagnostic imaging of other abdominal regions, including retroperitoneum; E11.9 Type 2 diabetes mellitus without complications; I10 Essential (primary) hypertension; K21.9 Gastro-esophageal reflux disease without esophagitis; J84.10 Pulmonary fibrosis, unspecified; N40.0 Benign prostatic hyperplasia without lower urinary tract symptoms; Z95.5 Presence of coronary angioplasty implant and graft; Z79.899 Other long term (current) drug therapy; Z79.84 Long term (current) use of oral hypoglycemic drugs; Z79.82 Long term (current) use of aspirin; Z91.018 Allergy to other foods; Z87.891 Personal history of nicotine dependence
CPT/HCPCS: 74177; 80053; 81001; 82248; 82550; 82553; 83690; 85025; 85610; 85730; 93005; 96361; 96374; 96375; 99284; C9113; J1100; J2270; J2765; Q9967

== ENCOUNTER 2018-10-14 15:02 | Inpatient (IN) | payer OTHER ==
[~2018-10-14] VITALS: Ht 167.6 cm; Wt 87.2 kg
[~2018-10-14 15:02] MED LIST: ADV500INH INH; ASPI81CH48 PO; ATEN25TA PO; ATOR40TA75 PO; CINN500C15 PO; CLAR10CA3 PO; CVS1500T PO; HYDR-3363 PO; LOSA25TA14 PO; METF-877 PO; MONT10TA2 PO; OMEP-218 PO; OXYB5TAB10 PO; SUCR1SS PO; VITA500C24 PO
[2018-10-14] MEDS ORDERED: ONDANSETRON 4MG/2ML VIAL (J2405) IV ONE (16:00)
[2018-10-14] MEDS ORDERED: NS 1,000 ML IV ONE (16:00)
--- NOTE | 2018-10-14 16:33 | REP ---
Chest one-view HISTORY: Abdominal pain A minimal increase in interstitial markings is present in the lungs consistent with chronic interstitial fibrosis. The heart is normal in size. The pulmonary vasculature is normal in appearance. Impression: Chronic interstitial fibrosis. Electronically Signed by Sami Valles MD 10/14/2018 04:25 P
[2018-10-14 16:37] LABS: BASO # 0.1 10^3/uL (0.0-0.2); BASO % 0.5 % (0.0-1.0); EOS # 0.2 10^3/uL (0.0-0.50); EOS % 1.9 % (0.0-3.0); HEMATOCRIT 39.4 % (42.0-52.0); HEMOGLOBIN 13.7 g/dl (13.5-17.5); LYMPH # 2.5 10^3/uL (1.5-4.5); MEAN CORPUSCULAR HGB CONC 34.8 g/dl (32.0-36.5); MEAN CORPUSCULAR VOLUME 83.3 fl (80.0-96.0); MONO # 0.6 10^3/uL (0.0-0.8); NEUTROPHILS # 6.5 10^3/uL (1.8-7.7); PLATELET COUNT, AUTOMATED 296 10^3/uL (150-450); RED BLOOD COUNT 4.73 10^6/uL (4.30-6.10); WHITE BLOOD COUNT 9.8 10^3/uL (4.0-10.0)
[2018-10-14] MEDS: MORPHINE 4 MG/ML 1ML VIAL/SYRINGE (J2270) IV PRN ×3 (16:37→22:33)
[2018-10-14 17:01] LABS: ALBUMIN 3.1 GM/DL (3.2-5.2); ALT/SGPT 88 U/L (12-78); AMYLASE 66 U/L (25-115); BILIRUBIN,DIRECT 0.1 MG/DL (0.0-0.2); BILIRUBIN,TOTAL 0.4 MG/DL (0.2-1.0); CPK CREATINE PHOSPHOKINASE 133 U/L (39-308); LIPASE 772 U/L (73-393); MB/CK RELATIVE INDEX 1.35 (< OR =4); TROPONIN I < 0.02 NG/ML (< 0.10)
[2018-10-14] MEDS ORDERED: INCR1INH INH (17:19)
[2018-10-14] MEDS ORDERED: ASCO500T PO (17:19)
[2018-10-14] MEDS ORDERED: GLUCTAB6 PO (17:19)
[2018-10-14] MEDS ORDERED: SUCR1TA PO (17:19)
[2018-10-14] MEDS ORDERED: OXYB10TA PO (17:19)
[2018-10-14] MEDS ORDERED: ASPI81TA85 PO (17:19)
[2018-10-14] MEDS ORDERED: LORA-622 PO (17:19)
[2018-10-14] MEDS ORDERED: ISOVUE-370 76% 100ML VIAL (Q9967) As Ordered ONE (17:25)
[2018-10-14] MEDS ORDERED: MAALOX 30 ML SUSP *UDC PO PRN (18:45)
[2018-10-14] MEDS ORDERED: MOM 30ML SUSPENSION UDC PO PRN (18:45)
--- NOTE | 2018-10-14 19:16 | REP ---
REASON: Severe upper abdominal pain. COMPARISON EXAM: 10/08/2018 which showed fatty infiltration of the liver, cirrhosis, possible duodenitis. Benign left adrenal gland mass and a large pancreatic head for which MR was recommended. CONTRAST: 100 mL [id number]. There are no changes in the lung bases. The liver is unchanged. The spleen, pancreas, adrenal glands and kidneys are unchanged. There are multiple renal cysts status quo. No abnormally enhancing hepatic or splenic masses are present. No abnormal pancreatic enhancement is present. There was a benign left adrenal gland nodule. The abdominal aorta and paraaortic regions are within normal limits. The bowel loops and their mesenteries are within normal limits. There is no free fluid or free air in the abdomen. C PELVIS: There is corpora amylacea status quo. There is no mass or adenopathy. There is no free fluid or free air. Bone window technique throughout the examination shows no change in the osseous structures. IMPRESSION:1. There is fatty infiltration of the liver and possible early cirrhosis. There is an abnormal caudate to left lobe radio. This needs to be correlated clinically. 2. Benign left adrenal gland nodule status quo. 3. No evidence of an enhancing pancreatic abnormality. There is no evidence of acute intraabdominal or intrapelvic disease. Findings as described above. Electronically Signed by Russell Camacho DO 10/14/2018 07:45 P
[2018-10-14] MEDS: D5W/LR 1,000 ML IV SCH (19:55)
[2018-10-14] MEDS ORDERED: hydrOXYzine 25 MG TAB PO SCH (21:00)
--- NOTE | 2018-10-14 21:58 | HPEPDOC ---
General Date of Admission Oct 14, 2018 at 18:34 Date of Service: Oct 14, 2018 Chief Complaint The patient is a 58-year-old male admitted with a reason for visit of Pancreatic Mass. Source: Patient, RN/, Old records History of Present Illness Mr. Corrigan is a 58 years old man who presents to the Er with c/o Abdominal pain, nausea and vomiting for about two and a half weeks. Pain is located on mid upper abdomen, and is severe in nature. Pt was on 09/18 in ER for the same reason. At the time, CT showed increased size of pancreatic head, but no other acute issues to explain the symptoms. Today CT report doesn't mention this finding. Lipase is moderately elevated at 772, but well below the three times upper limit. Both CTs failed to demonstrate pancreatitis. There was a suspicion of duodenitis in the previous CT; this has been ruled out by Surgery as per ER MD. Routine labs are normal except mildly elevated transaminase levels. Home Medications Scheduled Ascorbic Acid (Ascorbic Acid) 500 Mg Tablet, 500 MG PO QHS, (Reported) Aspirin (Aspir 81) 81 Mg Tablet.dr, 81 MG PO DAILY, (Reported) Atenolol (Atenolol) 25 Mg Tablet, 25 MG PO DAILY, (Reported) Atorvastatin Calcium (Atorvastatin Calcium) 40 Mg Tablet, 40 MG PO QHS, (Reported) Cinnamon Bark (Cinnamon) 500 Mg Capsule, 500 MG PO BID, (Reported) Gluc Cadena/Chondro Cadena A/Vit C/Mn (Glucosamine Chondroitin Tab) 1 Each Tablet, 1 TAB PO QHS, (Reported) Hydroxyzine HCl (Hydroxyzine HCl) 25 Mg Tablet, 25 MG PO QHS, (Reported) Loratadine (Loratadine) 10 Mg Tablet, 10 MG PO QHS, (Reported) Losartan Potassium (Losartan Potassium) 25 Mg Tablet, 25 MG PO DAILY, (Reported) Metformin HCl (Metformin HCl) 1,000 Mg Tablet, 1,000 MG PO BID, (Reported) Montelukast Sodium (Montelukast Sodium) 10 Mg Tablet, 10 MG PO QHS, (Reported) Omeprazole (Omeprazole) 20 Mg Capsule.dr, 20 MG PO DAILY, (Reported) Oxybutynin Chloride (Oxybutynin Chloride ER) 10 Mg Tab.er.24, 10 MG PO DAILY, (Reported) Salmeterol/Fluticasone (Advair 500-50 Diskus) 1 Each Blst.w.dev, 1 PUFF INH BID, (Reported) Sucralfate (Sucralfate) 1 Gm Tablet, 1 GM PO ACHS, (Reported) Umeclidinium Bowlus (Incruse Ellipta) 62.5 Mcg Blst.w.dev, 1 PUFF INH QHS, (Reported) Allergies Coded Allergies: Mustard (Verified Allergy, Severe, 10/08/18) ANAPHYLAXIS garlic (Verified Allergy, Severe, 10/08/18) ANAPHYLAXIS olive oil (Verified Allergy, Severe, 10/08/18) ANAPHYLAXIS Past Medical History Medical History CAD, KP on home CPAP, HTN, HLD, Pulmonary Fibrosis, COPD Surgical History Cholecystectomy Family History Significant Family History: No pertinent family hx Social History * Smoker: current smoker Alcohol: Denies Drugs: denies A-FIB/CHADSVASC A-FIB History Current/History of A-Fib/PAF?: No Review of Systems Constitutional: Denies: Chills, Fever, Malaise Eyes: Denies: Pain ENT: Denies: Head Aches, Ear Pain Skin: Denies: Rash, Lesions Pulmonary: Denies: Dyspnea, Cough Cardiovascular: Denies: Chest Pain, Palpitations, Edema Gastrointestinal: Reports: Nausea, Vomiting, Abdominal Pain; Denies: Diarrhea, Constipation Genitourinary: Denies: Dysuria, Frequency Musculoskeletal: Denies: Neck Pain, Back Pain Neurological: Denies: Weakness, Numbness Psych: Reports: Mood Normal; Denies: Anxiety Physical Examination General Exam: Positive: Alert, Cooperative, No Acute Distress Eye Exam: Positive: PERRLA ENT Exam: Positive: Atraumatic Neck Exam: Positive: Supple; Negative: JVD Chest Exam: Positive: Clear to auscultation, Normal air movement Heart Exam: Positive: Rate Normal, Regular Rhythm; Negative: Murmurs Abdomen Exam: Positive: Normal bowel sounds, Tenderness (severe tenderness on right mid abdomen with guarding) Extremity Exam: Positive: Normal pulses; Negative: Edema Skin Exam: Positive: Nl turgor and temperature; Negative: Rash, Breakdown Neuro Exam: Positive: Normal Speech, Strength at 5/5 X4 ext, Normal Tone Psych Exam: Positive: Mental status NL Vital Signs Vital Signs Date Time Temp Pulse Resp B/P (MAP) Pulse Ox O2 Delivery O2 Flow Rate FiO2 10/14/18 20:31 97.7 74 18 109/66 (80) 94 Room Air Laboratory Data Labs 24H Laboratory Tests 2 10/14/18 16:18: Immature Granulocyte % (Auto) 0.6, White Blood Count 9.8, Red Blood Count 4.73, Hemoglobin 13.7, Hematocrit 39.4L, Mean Corpuscular Volume 83.3, Mean Co rpuscular Hemoglobin 29.0, Mean Corpuscular Hemoglobin Concent 34.8, Red Cell Distribution Width 13.1, Platelet Count 296, Neutrophils (%) (Auto) 66.0, Lymphocytes (%) (Auto) 25.0, Monocytes (%) (Auto) 6.0H, Eosinophils (%) (Auto) 1.9, Basophils (%) (Auto) 0.5, Neutrophils # (Auto) 6.5, Lymphocytes # (Auto) 2.5, Monocytes # (Auto) 0.6, Eosinophils # (Auto) 0.2, Basophils # (Auto) 0.1, Nucleated Red Blood Cells % (auto) 0.0, Urine Color YELLOW, Urine Appearance CLEAR, Urine pH 5.0, Urine Specific [place] 1.014, Urine Protein NEGATIVE, Urine Glucose (UA) 3+H, Urine Ketones NEGATIVE, Urine Blood NEGATIVE, Urine Nitrite NEGATIVE, Urine Bilirubin NEGATIVE, Urine Urobilinogen 0.2, Urine Leukocyte Esterase NEGATIVE, Urine WBC (Auto) 1, Urine RBC (Auto) 1, Urine Hyaline Casts (Auto) 0, Urine Bacteria (Auto) NEGATIVE, Urine Squamous Epithelial Cells 0, Urine Mucus (Auto) SMALL, Urine Sperm (Auto) , Lactic Acid Level 1.0, Aspartate Amino Transf (AST/SGOT) 39H, Alanine Aminotransferase (ALT/SGPT) 88H, Alkaline Phosphatase 145H, Total Bilirubin 0.4, Direct Bilirubin 0.1, Total Creatine Kinase 133, Creatine Kinase MB 2.0, Creatine Kinase MB Relative Index 1.35, Troponin I < 0.02, Total Protein 7.0, Albumin 3.1L, Albumin/Globulin Ratio 0.79L, Amylase Level 66, Lipase 772H 10/14/18 16:29: POC Glucose (Misc Panel) 233H, POC Sodium (Misc Panel) 134L, POC Potassium (Misc Panel) 3.8, POC Chloride (Misc Panel) 96L, POC Total CO2 (Misc Panel) 25.0, POC Blood Urea Nitrogen (Misc Panel 14, POC Ionized Calcium (Misc Panel) 4.9, POC Creatinine (Misc Panel) 0.7, POC Hematocrit (Misc Panel) 41.0 CBC/BMP Laboratory Tests 10/14/18 16:18 Red Blood Count 4.73, Mean Corpuscular Volume 83.3, Mean Corpuscular Hemoglobin 29.0, Mean Corpuscular Hemoglobin Concent 34.8, Red Cell Distribution Width 13.1, Neutrophils (%) (Auto) 66.0, Lymphocytes (%) (Auto) 25.0, Monocytes (%) (Auto) 6.0 H, Eosinophils (%) (Auto) 1.9, Basophils (%) (Auto) 0.5, Neutrophils # (Auto) 6.5, Lymphocytes # (Auto) 2.5, Monocytes # (Auto) 0.6, Eosinophils # (Auto) 0.2, Basophils # (Auto) 0.1 Microbiology Microbiology 10/14/18 Blood Culture, Received Pending 10/14/18 Blood Culture, Received Pending Assessment/Plan Severe Abdominal Pain, Enlarged Pancreatis head, Questionable Duodenitis - Admit to inpatient - NPO, IV fluid, pain management, anti-emetic - MRI abdomen tomorrow am to evaluate pancreas - IV PPI for suspected Duodenitis; may need EGD if MRI unable explain source of abdominal pain - Monitor and supplement electrolutes. Continue home meds for other chronic illness. NicoDerm prn for nicotine dependence. Plan / VTE VTE Prophylaxis Ordered?: Yes Plan Anticipated Discharge: GARY Mckenna MD Oct 14, 2018 21:58
[2018-10-14] MEDS ORDERED: NICOTINE 21MG/24HR 1 EA TRANSDERMAL TD PRN (22:00)
[2018-10-14 22:05] VITALS: BP 131/77
[2018-10-14 22:18] LABS: INR 0.99; PARTIAL THROMBOPLASTIN TIME 31.9 SECONDS (25.4-37.6); PROTHROMBIN TIME 13.2 SECONDS (12.1-14.4)
[2018-10-14] MEDS: ATORVASTATIN 20 MG TAB PO SCH (22:48)
[2018-10-14] MEDS: PANTOPRAZOLE 40MG INJ (PROTONIX) (C9113) IV SCH (22:48)
[2018-10-14] MEDS: MONTELUKAST 10 MG TAB PO SCH (22:48)
[2018-10-14] MEDS: HEPARIN SOD (PORCINE) 5000 UNITS/ML VIAL SC SCH (22:48)
[2018-10-14] MEDS: LORATADINE 10 MG TAB PO SCH (22:48)
[2018-10-15] MEDS ORDERED: DEXTROSE 50% 50 ML SYRINGE IV PRN (01:15)
[2018-10-15] MEDS ORDERED: GLUCAGON FOR INJ 1 MG VIAL (J1610) SC PRN (01:15)
[2018-10-15] MEDS ORDERED: GLUCOSE 4 GM CHEW TABLET PO PRN (01:15)
[2018-10-15] MEDS: HumaLOG INSULIN (NovoLOG) PER UNIT SC SCH ×4 (01:18→17:30)
[2018-10-15] MEDS: MORPHINE 4 MG/ML 1ML VIAL/SYRINGE (J2270) IV PRN ×3 (04:22→21:25)
[2018-10-15] MEDS: ONDANSETRON 4MG/2ML VIAL (J2405) IV PRN ×2 (04:31→21:25)
[2018-10-15] MEDS: D5W/LR 1,000 ML IV SCH (05:32)
[2018-10-15] MEDS: ACETAMINOPHEN TAB 650MG DOSE (2X325MG) PO PRN ×2 (05:39→09:09)
[2018-10-15 06:00] VITALS: BP 116/76
[2018-10-15 06:16] LABS: HEMATOCRIT 38.6 % (42.0-52.0); HEMOGLOBIN 13.2 g/dl (13.5-17.5); MEAN CORPUSCULAR HEMOGLOBIN 29.9 pg (27.0-33.0); MEAN CORPUSCULAR HGB CONC 34.2 g/dl (32.0-36.5); MEAN CORPUSCULAR VOLUME 87.3 fl (80.0-96.0); PLATELET COUNT, AUTOMATED 254 10^3/uL (150-450); RED BLOOD COUNT 4.42 10^6/uL (4.30-6.10); WHITE BLOOD COUNT 7.7 10^3/uL (4.0-10.0)
[2018-10-15 06:42] LABS: BLOOD UREA NITROGEN 14 MG/DL (7-18); CALCIUM LEVEL 8.9 MG/DL (8.5-10.1); CARBON DIOXIDE LEVEL 28 MEQ/L (21-32); CHLORIDE LEVEL 102 MEQ/L (98-107); CREATININE FOR GFR 0.87 MG/DL (0.70-1.30); GLOMERULAR FILTRATION RATE > 60.0 (>56); GLUCOSE, FASTING 185 MG/DL (70-100); LIPASE 749 U/L (73-393); POTASSIUM SERUM 3.8 MEQ/L (3.5-5.1); SODIUM LEVEL 137 MEQ/L (136-145)
[2018-10-15] MEDS: TIOTROPIUM INHALER/CAPSULE (SPIRIVA) INH SCH (08:00)
[2018-10-15] MEDS: PANTOPRAZOLE 40MG INJ (PROTONIX) (C9113) IV SCH ×2 (08:13→21:24)
[2018-10-15] MEDS: ATENOLOL 25 MG TAB PO SCH (08:13)
[2018-10-15] MEDS: oxyBUTYnin *DITROPAN XL* 5 MG TABCR PO SCH (08:13)
[2018-10-15] MEDS: ASPIRIN 81 MG ENTERIC TAB PO SCH (08:13)
[2018-10-15] MEDS: HEPARIN SOD (PORCINE) 5000 UNITS/ML VIAL SC SCH ×2 (08:13→21:29)
--- NOTE | 2018-10-15 08:14 | ECGEPIP ---
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
[2018-10-15] MEDS ORDERED: PROHANCE 279.3MG/ML 5ML VIAL (A9576) As Ordered ONE (12:06)
[2018-10-15] MEDS ORDERED: PROHANCE 279.3MG/ML 15ML VIAL (A9576) As Ordered ONE (12:06)
[2018-10-15] MEDS: NS 1,000 ML IV SCH (12:56)
[2018-10-15 14:00] VITALS: BP 129/78
--- NOTE | 2018-10-15 14:23 | REP ---
MRI PANCREAS WITH AND WITHOUT CONTRAST: Multiple sequences obtained in the axial and coronal planes prior to following the intravenous administration of 17 mL ProHance. Correlation made with recent CT exam 10/14/2018 and 10/08/2018. In the inferior aspect of the pancreatic head there is heterogeneous signal. This is approximately 2 cm in diameter. There is ill-defined area of low signal on T1 and on T2 fat sat images there is mild hyperintensity in this region. This areas surroundings the distal common bile duct and pancreatic duct. There is no mass effect. On chemical shift imaging I do not see evidence of significant fatty infiltration of the pancreas. On arterial phase post contrast images the area in the inferior posterior pancreatic head does not show immediate enhancement. It becomes isointense on the 30 seconds and 1 minute post contrast images and is mildly hyperintense on the delayed 2 minute post contrast images compared to the remaining pancreas. There is no pancreatic duct dilatation. There is a 2 to 3 mm cyst in the pancreas at the junction of the body and tail. No other pancreatic abnormality is seen. The common bile duct is slightly dilated at 9 mm, but this is expected in this patient who has had a prior cholecystectomy. I do not see a definite common bile duct structure. The visualized liver demonstrates findings compatible with areas of fatty infiltration without evidence of an enhancing mass. The visualized spleen is gross unremarkable. Left adrenal adenoma is again seen unchanged since prior studies measuring 1.5 cm in diameter. There are multiple bilateral renal cysts present, most subcentimeter in diameter, largest measuring up to 1.5 cm in diameter. There is on hydronephrosis. I do not see significant adenopathy in the visualized abdomen. No free fluid is seen. IMPRESSION: Area of ill-defined signal in the inferior posterior pancreatic head with a diameter of approximately 2 cm. This surrounds the distal common bile duct and pancreatic duct. There is no mass effect or stricture of these ducts. I would favor that this signal abnormality in the pancreatic head represents post inflammatory changes possibly from sclerosing pancreatitis, rather than neoplasm. Further evaluation could be made with endoscopic ultrasound and biopsy. Otherwise, followup MRI could be obtained in 2-3 months. At the junction of the body and tail of the pancreas there is a benign appearing 3 mm cyst. Common bile duct is slightly dilated at 9 mm in diameter, as expected in this patient status post cholecystectomy. There are areas of fatty infiltration in the visualized liver. Stable left adrenal adenoma. Multiple bilateral renal cysts. Electronically Signed by Yovani Dill MD 10/17/2018 08:37 A
[2018-10-15] MEDS: ALBUTEROL SULFATE 2.5 MG/0.5 ML INH NEB SOLN NEB SCH (14:58)
--- NOTE | 2018-10-15 15:47 | IPNPDOC ---
Subjective Date Seen The patient was seen on 10/15/18. Subjective Chief Complaint/HPI continues to complain of generalized abdominal pain maximum in the epigastrium. No diarrhea today. No vomiting. No fever or chills. Objective Physical Examination General Exam: Positive: Alert, Cooperative, No Acute Distress Eye Exam: Positive: PERRLA ENT Exam: Positive: Atraumatic Neck Exam: Positive: Supple; Negative: JVD Chest Exam: Positive: Rales (both bases), Rhonchi, Wheezing, Diminished Heart Exam: Positive: Rate Normal, Regular Rhythm; Negative: Murmurs Abdomen Exam: Positive: Normal bowel sounds, Tenderness (severe tenderness on right mid abdomen with guarding) Extremity Exam: Positive: Normal pulses; Negative: Edema Skin Exam: Positive: Nl turgor and temperature; Negative: Rash, Breakdown Neuro Exam: Positive: Normal Speech, Strength at 5/5 X4 ext, Normal Tone Psych Exam: Positive: Mental status NL Assessment /Plan Assessment Pancreatitis/ gastritis/duodenitis MRCP noted. Pancreatitic head abnormal signal intensity will allow clear liquids continue NS. pain control with morphine prn, PPI consult GI CAD, continue ASA, betablocker and statin KP on home CPAP, HTN, continue atenolol HLD, continue statin. Pulmonary Fibrosis and COPD continue advair, spiriva, albuterol, singulair. Left adrenal adenoma stable Fatty liver vs cirrhotic liver Bilateral renal cysts. stable Smoker counselled about quitting smoking. offered nicotine patch. Plan/VTE VTE Prophylaxis Ordered?: Yes Plan Anticipated Discharge: Home VS, I&O, 24H, Fishbone Vital Signs/I&O Vital Signs Date Time Temp Pulse Resp B/P (MAP) Pulse Ox O2 Delivery O2 Flow Rate FiO2 10/15/18 14:00 97.2 60 18 129/78 (95) 98 10/14/18 21:30 Room Air I&O- Last 24 Hours up to 6 AM 10/15/18 06:00 Intake Total 2000 ml Output Total 400 ml Balance 1600 ml Laboratory Data 24H LABS Laboratory Tests 2 10/14/18 16:18: Immature Granulocyte % (Auto) 0.6, White Blood Count 9.8, Red Blood Count 4.73, Hemoglobin 13.7, Hematocrit 39.4L, Mean Corpuscular Volume 83.3, Mean Corpuscular Hemoglobin 29.0, Mean Corpuscular Hemoglobin Concent 34.8, Red Cell Distribution Width 13.1, Platelet Count 296, Neutrophils (%) (Auto) 66.0, Lymphocytes (%) (Auto) 25.0, Monocytes (%) (Auto) 6.0H, Eosinophils (%) (Auto) 1.9, Basophils (%) (Auto) 0.5, Neutrophils # (Auto) 6.5, Lymphocytes # (Auto) 2.5, Monocytes # (Auto) 0.6, Eosinophils # (Auto) 0.2, Basophils # (Auto) 0.1, Nucleated Red Blood Cells % (auto) 0.0, Urine Color YELLOW, Urine Appearance CLEAR, Urine pH 5.0, Urine Specific [place] 1.014, Urine Protein NEGATIVE, Urine Glucose (UA) 3+H, Urine Ketones NEGATIVE, Urine Blood NEGATIVE, Urine Nitrite NEGATIVE, Urine Bilirubin NEGATIVE, Urine Urobilinogen 0.2, Urine Leukocyte Esterase NEGATIVE, Urine WBC (Auto) 1, Urine RBC (Auto) 1, Urine Hyaline Casts (Auto) 0, Urine Bacteria (Auto) NEGATIVE, Urine Squamous Epithelial Cells 0, Urine Mucus (Auto) SMALL, Urine Sperm (Auto) , Lactic Acid Level 1.0, Aspartate Amino Transf (AST/SGOT) 39H, Alanine Aminotransferase (ALT/SGPT) 88H, Alkaline Phosphatase 145H, Total Bilirubin 0.4, Direct Bilirubin 0.1, Total Creatine Kinase 133, Creatine Kinase MB 2.0, Creatine Kinase MB Relative Index 1.35, Troponin I < 0.02, Total Protein 7.0, Albumin 3.1L, Albumin/Globulin Ratio 0.79L, Amylase Level 66, Lipase 772H 10/14/18 16:29: POC Glucose (Misc Panel) 233H, POC Sodium (Misc Panel) 134L, POC Potassium (Misc Panel) 3.8, POC Chloride (Misc Panel) 96L, POC Total CO2 (Misc Panel) 25.0, POC Blood Urea Nitrogen (Misc Panel 14, POC Ionized Calcium (Misc Panel) 4.9, POC Creatinine (Misc Panel) 0.7, POC Hematocrit (Misc Panel) 41.0 10/14/18 21:59: Prothrombin Time 13.2, Prothromb Time International Ratio 0.99, Activated Partial Thromboplast Time 31.9 10/15/18 00:11: Bedside Glucose (Misc Panel) 179H 10/15/18 05:20: Bedside Glucose (Misc Panel) 194H 10/15/18 05:53: Nucleated Red Blood Cells % (auto) 0.0, Anion Gap 7L, Glomerular Filtration Rate > 60.0, Blood Urea Nitrogen 14, Creatinine 0.87, Sodium Level 137, Potassium Level 3.8, Chloride Level 102, Carbon Dioxide Level 28, Calcium Level 8.9, Lipase 749H 10/15/18 11:32: Bedside Glucose (Misc Panel) 152H CBC/BMP Laboratory Tests 10/14/18 16:18 Red Blood Count 4.73, Mean Corpuscular Volume 83.3, Mean Corpuscular Hemoglobin 29.0, Mean Corpuscular Hemoglobin Concent 34.8, Red Cell Distribution Width 13.1, Neutrophils (%) (Auto) 66.0, Lymphocytes (%) (Auto) 25.0, Monocytes (%) (Auto) 6.0 H, Eosinophils (%) (Auto) 1.9, Basophils (%) (Auto) 0.5, Neutrophils # (Auto) 6.5, Lymphocytes # (Auto) 2.5, Monocytes # (Auto) 0.6, Eosinophils # (Auto) 0.2, Basophils # (Auto) 0.1 10/15/18 05:53 Red Blood Count 4.42, Mean Corpuscular Volume 87.3, Mean Corpuscular Hemoglobin 29.9, Mean Corpuscular Hemoglobin Concent 34.2, Red Cell Distribution Width 13.3, Calcium Level 8.9 Microbiology Microbiology 10/14/18 Blood Culture, Received Pending 10/14/18 Blood Culture, Received Pending WILD SCOTT MD Oct 15, 2018 15:46
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
[2018-10-15 18:49] LABS: IRON (FE) 56 UG/DL (65-175); TOTAL IRON BINDING CAPACITY 311 UG/DL (250-450)
[2018-10-15 19:28] LABS: CA19-9 TUMOR MARKER,CARBOHYDRA 32.9 U/ML (<35.0)
[2018-10-15] MEDS: ADVAIR HFA 230/21MCG INHALER INH SCH (20:03)
[2018-10-15] MEDS: ATORVASTATIN 20 MG TAB PO SCH (21:24)
[2018-10-15] MEDS: MONTELUKAST 10 MG TAB PO SCH (21:24)
[2018-10-15] MEDS: LORATADINE 10 MG TAB PO SCH (21:24)
[2018-10-15 22:00] VITALS: BP 146/76
[2018-10-16] MEDS: HumaLOG INSULIN (NovoLOG) PER UNIT SC SCH ×4 (00:27→18:10)
[2018-10-16] MEDS: NS 1,000 ML IV SCH ×3 (01:24→21:32)
[2018-10-16 06:00] VITALS: BP 130/70
[2018-10-16] MEDS: MORPHINE 4 MG/ML 1ML VIAL/SYRINGE (J2270) IV PRN ×2 (06:14→23:09)
[2018-10-16] MEDS: ONDANSETRON 4MG/2ML VIAL (J2405) IV PRN ×2 (06:14→23:09)
[2018-10-16 06:35] LABS: ALBUMIN 2.4 GM/DL (3.2-5.2); BILIRUBIN,DIRECT 0.2 MG/DL (0.0-0.2); BILIRUBIN,TOTAL 0.4 MG/DL (0.2-1.0); TOTAL PROTEIN 6.5 GM/DL (6.4-8.2)
[2018-10-16] MEDS: TIOTROPIUM INHALER/CAPSULE (SPIRIVA) INH SCH (08:40)
[2018-10-16] MEDS: ADVAIR HFA 230/21MCG INHALER INH SCH ×2 (08:41→20:06)
[2018-10-16] MEDS: HEPARIN SOD (PORCINE) 5000 UNITS/ML VIAL SC SCH ×2 (09:00→21:26)
[2018-10-16] MEDS: ATENOLOL 25 MG TAB PO SCH (09:50)
[2018-10-16] MEDS: ASPIRIN 81 MG ENTERIC TAB PO SCH (09:50)
[2018-10-16] MEDS: oxyBUTYnin *DITROPAN XL* 5 MG TABCR PO SCH (09:51)
[2018-10-16] MEDS: PANTOPRAZOLE 40MG INJ (PROTONIX) (C9113) IV SCH ×2 (09:51→21:26)
[2018-10-16 09:56] LABS: HEPATITIS B SURFACE ANTIGEN NEGATIVE (NEGATIVE)
[2018-10-16 10:23] LABS: HEPATITIS C VIRUS ABY INDEX < 0.0 INDEX (<0.8)
[2018-10-16 10:24] LABS: HEPATITIS B CORE ANTIBODY IGM NEGATIVE (NEGATIVE)
[2018-10-16 10:26] LABS: HEPATITIS A ANTIBODY IGM NEGATIVE (NEGATIVE)
[2018-10-16] MEDS ORDERED: SIMETHICONE 40MG/0.6ML DROPS 30ML As Ordered ONE (13:02)
[2018-10-16 14:00] VITALS: BP 133/76
[2018-10-16] MEDS: ALBUTEROL SULFATE 2.5 MG/0.5 ML INH NEB SOLN NEB SCH ×2 (14:48)
[2018-10-16] MEDS ORDERED: ALBUTEROL SULFATE 2.5 MG/0.5 ML INH NEB SOLN NEB PRN (16:00)
[2018-10-16] MEDS ORDERED: PROPOFOL 200 MG/20 ML VIAL As Ordered ONE ×2 (17:09→17:23)
[2018-10-16] MEDS ORDERED: LIDOCAINE 2% INJ 100 MG/5 ML SDV (FOR ANES.) As Ordered ONE (17:09)
--- NOTE | 2018-10-16 17:12 | IPNPDOC ---
Subjective Date Seen The patient was seen on 10/16/18. Subjective Chief Complaint/HPI continues to have abdominal distension and pain. No further vomiting. has been able to tolerate clear liquids. Objective Physical Examination General Exam: Positive: Alert, Cooperative, No Acute Distress Eye Exam: Positive: PERRLA ENT Exam: Positive: Atraumatic Neck Exam: Positive: Supple; Negative: JVD Chest Exam: Positive: Rales (both bases), Rhonchi, Wheezing, Diminished Heart Exam: Positive: Rate Normal, Regular Rhythm; Negative: Murmurs Abdomen Exam: Positive: Normal bowel sounds, Tenderness (severe tenderness on right mid abdomen with guarding) Extremity Exam: Positive: Normal pulses; Negative: Edema Skin Exam: Positive: Nl turgor and temperature; Negative: Rash, Breakdown Neuro Exam: Positive: Normal Speech, Strength at 5/5 X4 ext, Normal Tone Psych Exam: Positive: Mental status NL Assessment /Plan Assessment Acute Pancreatitis/ gastritis/duodenitis MRCP noted. Pancreatic head and uncinate process enlarged with abnormal signal intensity but no definite mass will need further work up. No gall stones, s/p cholecystectomy . Could be related to drugs. will allow clear liquids continue NS. pain control with morphine prn, PPI Planned for EGD today. Further work up has been ordered by GI Hep B and Hep C negative. Transaminitis could be due to acute pancreatitis or fatty liver. May have early cirrhosis also as per CT . probably due to RODAS. CAD, continue ASA, betablocker and statin KP on home CPAP, HTN, continue atenolol HLD, continue statin. Pulmonary Fibrosis and COPD continue advair, spiriva, albuterol, singulair. Left adrenal adenoma 1.8 cm stable Fatty liver and probably Early cirrhotic liver Bilateral renal cysts. stable Smoker counselled about quitting smoking. offered nicotine patch. Prostatic hyperplasia Plan/VTE VTE Prophylaxis Ordered?: Yes Plan Anticipated Discharge: Home VS, I&O, 24H, Fishbone Vital Signs/I&O Vital Signs Date Time Temp Pulse Resp B/P (MAP) Pulse Ox O2 Delivery O2 Flow Rate FiO2 10/16/18 14:00 97.4 51 15 133/76 (95) 96 10/14/18 21:30 Room Air I&O- Last 24 Hours up to 6 AM 10/16/18 06:00 Intake Total 4350 ml Output Total 4600 ml Balance -250 ml Laboratory Data 24H LABS Laboratory Tests 2 10/15/18 18:14: Iron Level 56L, Total Iron Binding Capacity 311, Transferrin % Saturation 18.0L, CA 19-9 Antigen 32.9, Hepatitis A IgM Antibody NEGATIVE, Hepatitis B Surface Antigen NEGATIVE, Hepatitis B Core IgM Antibody NEGATIVE, Hepatitis C Antibody Index < 0.0 10/15/18 18:15: 10/15/18 23:32: Bedside Glucose (Misc Panel) 187H 10/16/18 05:50: Bedside Glucose (Misc Panel) 204H 10/16/18 05:54: Aspartate Amino Transf (AST/SGOT) 55H, Alanine Aminotransferase (ALT/SGPT) 111H, Alkaline Phosphatase 173H, Total Bilirubin 0.4, Direct Bilirubin 0.2, Total Protein 6.5, Albumin 2.4#L, Albumin/Globulin Ratio 0.59L, Lipase 436H 10/16/18 11:27: Bedside Glucose (Misc Panel) 321H Microbiology Microbiology 10/14/18 Blood Culture - Preliminary, Resulted No growth after 24 hours . All specim... 10/14/18 Blood Culture - Preliminary, Resulted No Growth after 48 hours. All Specime... IWLD SCOTT MD Oct 16, 2018 17:12
--- NOTE | 2018-10-16 17:34 | ROOR ---
Patient Name: Ramos Corrigan Procedure Date: 10/16/2018 4:57 PM Date of : 1960 Age: 58 Gender: Male Note Status: Finalized Procedure: Upper GI endoscopy Indications: Epigastric abdominal pain, Pancreatitis (Idiopathic) Providers: Germain HERRON MD Referring MD: CELIA LONGORIA MD, 2. Inpatient 2. Inpatient Requesting Provider: Medicines: Monitored Anesthesia Care Complications: No immediate complications. Procedure: Pre-Anesthesia Assessment: - The heart rate, respiratory rate, oxygen saturations, blood pressure, adequacy of pulmonary ventilation, and response to care were monitored throughout the procedure. The Endoscope was introduced through the mouth, and advanced to the second part of duodenum. The upper GI endoscopy was accomplished without difficulty. The patient tolerated the procedure well. Findings: The esophagus was normal. The stomach was normal. The examined duodenum was normal. A medium diverticulum was found in the second portion of the duodenum. Impression: - Normal esophagus. - Normal stomach. - Normal examined duodenum. -Incidental small/medium sized duodenal diverticulum. - No specimens collected. Recommendation: - Observe patient's clinical course. - Will discontinue Atorvastatin. - Await results of lab work. Germain Herron MD Germain HERRON MD 10/16/2018 5:33:43 PM Electronically signed by Germain HERRON MD Number of Addenda: 0 Note Initiated On: 10/16/2018 4:57 PM Estimated Blood Loss: Estimated blood loss: none.
[2018-10-16 18:00] VITALS: BP 126/77
[2018-10-16] MEDS ORDERED: ONDANSETRON 4MG/2ML VIAL (J2405) IV PRN (18:00)
[2018-10-16] MEDS ORDERED: LR 1,000 ML IV SCH (18:00)
[2018-10-16 18:57] VITALS: BP 118/73
[2018-10-16] MEDS: LORATADINE 10 MG TAB PO SCH (21:26)
[2018-10-16] MEDS: MONTELUKAST 10 MG TAB PO SCH (21:26)
[2018-10-16 22:00] VITALS: BP 118/75
[2018-10-17] MEDS: HumaLOG INSULIN (NovoLOG) PER UNIT SC SCH ×4 (00:55→17:17)
[2018-10-17 06:00] VITALS: BP 116/75
[2018-10-17 06:23] LABS: BASO % 0.6 % (0.0-1.0); EOS # 0.2 10^3/uL (0.0-0.50); HEMATOCRIT 35.9 % (42.0-52.0); LYMPH # 1.8 10^3/uL (1.5-4.5); LYMPH % 25.5 % (24.0-44.0); MEAN CORPUSCULAR HEMOGLOBIN 29.1 pg (27.0-33.0); MEAN CORPUSCULAR HGB CONC 33.4 g/dl (32.0-36.5); MEAN CORPUSCULAR VOLUME 87.1 fl (80.0-96.0); MONO # 0.5 10^3/uL (0.0-0.8); MONO % 7.6 % (0.0-5.0); NEUTROPHILS # 4.4 10^3/uL (1.8-7.7); NEUTROPHILS % 62.7 % (36.0-66.0); PLATELET COUNT, AUTOMATED 235 10^3/uL (150-450); RED BLOOD COUNT 4.12 10^6/uL (4.30-6.10)
[2018-10-17 06:51] LABS: BLOOD UREA NITROGEN 6 MG/DL (7-18); CALCIUM LEVEL 8.3 MG/DL (8.5-10.1); CARBON DIOXIDE LEVEL 30 MEQ/L (21-32); CHLORIDE LEVEL 104 MEQ/L (98-107); CREATININE FOR GFR 0.86 MG/DL (0.70-1.30); GLOMERULAR FILTRATION RATE > 60.0 (>56); GLUCOSE, FASTING 134 MG/DL (70-100); POTASSIUM SERUM 3.9 MEQ/L (3.5-5.1); SODIUM LEVEL 140 MEQ/L (136-145)
[2018-10-17 07:16] LABS: ALBUMIN 2.6 GM/DL (3.2-5.2); ALT/SGPT 99 U/L (12-78); BILIRUBIN,DIRECT 0.2 MG/DL (0.0-0.2); BILIRUBIN,TOTAL 0.4 MG/DL (0.2-1.0); TOTAL PROTEIN 6.7 GM/DL (6.4-8.2)
[2018-10-17] MEDS: ADVAIR HFA 230/21MCG INHALER INH SCH ×2 (07:23→19:46)
[2018-10-17] MEDS: TIOTROPIUM INHALER/CAPSULE (SPIRIVA) INH SCH (07:23)
[2018-10-17] MEDS: ASPIRIN 81 MG ENTERIC TAB PO SCH (08:57)
[2018-10-17] MEDS: ATENOLOL 25 MG TAB PO SCH (08:58)
[2018-10-17] MEDS: PANTOPRAZOLE 40MG INJ (PROTONIX) (C9113) IV SCH ×2 (08:58→21:16)
[2018-10-17] MEDS: oxyBUTYnin *DITROPAN XL* 5 MG TABCR PO SCH (08:58)
[2018-10-17] MEDS: HEPARIN SOD (PORCINE) 5000 UNITS/ML VIAL SC SCH ×2 (08:58→21:15)
--- NOTE | 2018-10-17 12:51 | IPNPDOC ---
Subjective Date Seen The patient was seen on 10/17/18. Subjective Chief Complaint/HPI Abdominal pain is better, through still has some epigastric soreness. No further vomiting, tolerated full liquids, had a bowel movement today after several days. Objective Physical Examination General Exam: Positive: Alert, Cooperative, No Acute Distress Eye Exam: Positive: PERRLA ENT Exam: Positive: Atraumatic Neck Exam: Positive: Supple; Negative: JVD Chest Exam: Positive: Rales (both bases), Rhonchi, Wheezing, Diminished Heart Exam: Positive: Rate Normal, Regular Rhythm; Negative: Murmurs Abdomen Exam: Positive: Normal bowel sounds, Soft, Tenderness (severe tenderness on right mid abdomen with guarding), Other (no guarding or rigidity) Extremity Exam: Positive: Normal pulses; Negative: Edema Skin Exam: Positive: Nl turgor and temperature; Negative: Rash, Breakdown Neuro Exam: Positive: Normal Speech, Strength at 5/5 X4 ext, Normal Tone Psych Exam: Positive: Mental status NL Assessment /Plan Assessment Acute Pancreatitis/ gastritis/duodenitis MRCP noted. Pancreatic head and uncinate process enlarged with abnormal signal intensity but no definite mass will need further work up. No gall stones, s/p cholecystectomy . Could be related to drugs. Atorvastatin stopped. will allow clear liquids continue NS. pain control with morphine prn, PPI Planned for EGD today. Further work up has been ordered by GI Hep B and Hep C negative. Transaminitis could be due to acute pancreatitis or fatty liver. May have early cirrhosis also as per CT . probably due to RODAS. CAD, continue ASA, betablocker statin stopped as could cause pancreatitis. KP on home CPAP, HTN, continue atenolol HLD, continue statin. Pulmonary Fibrosis and COPD continue advair, spiriva, albuterol, singulair. Left adrenal adenoma 1.8 cm stable Fatty liver and probably Early cirrhotic liver Bilateral renal cysts. stable Smoker counselled about quitting smoking. offered nicotine patch. Prostatic hyperplasia Plan/VTE VTE Prophylaxis Ordered?: Yes Plan Anticipated Discharge: Home VS, I&O, 24H, Fishbone Vital Signs/I&O Vital Signs Date Time Temp Pulse Resp B/P (MAP) Pulse Ox O2 Delivery O2 Flow Rate FiO2 10/17/18 08:58 88 114/74 10/17/18 06:00 97.6 19 95 10/14/18 21:30 Room Air l I&O- Last 24 Hours up to 6 AM 10/17/18 06:00 Intake Total 2973 ml Output Total 4850 ml Balance -1877 ml Laboratory Data 24H LABS Laboratory Tests 2 10/16/18 18:00: Bedside Glucose (Misc Panel) 136H 10/17/18 00:43: Bedside Glucose (Misc Panel) 186H 10/17/18 05:47: Bedside Glucose (Misc Panel) 135H 10/17/18 05:52: Immature Granulocyte % (Auto) 0.6, White Blood Count 7.0, Red Blood Count 4.12L, Hemoglobin 12.0L, Hematocrit 35.9L, Mean Corpuscular Volume 87.1, Mean Corpuscular Hemoglobin 29.1, Mean Corpuscular Hemoglobin Concent 33.4, Red Cell Distribution Width 13.5, Platelet Count 235, Neutrophils (%) (Auto) 62.7, Lymphocytes (%) (Auto) 25.5, Monocytes (%) (Auto) 7.6H, Eosinophils (%) (Auto) 3.0, Basophils (%) (Auto) 0.6, Neutrophils # (Auto) 4.4, Lymphocytes # (Auto) 1.8, Monocytes # (Auto) 0.5, Eosinophils # (Auto) 0.2, Basophils # (Auto) 0.0, Nucleated Red Blood Cells % (auto) 0.0, Anion Gap 6L, Glomerular Filtration Rate > 60.0, Calcium Level 8.3L, Aspartate Amino Transf (AST/SGOT) 52H, Alanine Aminotransferase (ALT/SGPT) 99H, Alkaline Phosphatase 179H, Total Bilirubin 0.4, Direct Bilirubin 0.2, Total Protein 6.7, Albumin 2.6L, Albumin/Globulin Ratio 0.63L 10/17/18 11:28: Bedside Glucose (Misc Panel) 285H CBC/BMP Laboratory Tests 10/17/18 05:52 Red Blood Count 4.12 L, Mean Corpuscular Volume 87.1, Mean Corpuscular Hemoglobin 29.1, Mean Corpuscular Hemoglobin Concent 33.4, Red Cell Distribution Width 13.5, Neutrophils (%) (Auto) 62.7, Lymphocytes (%) (Auto) 25.5, Monocytes (%) (Auto) 7.6 H, Eosinophils (%) (Auto) 3.0, Basophils (%) (Auto) 0.6, Neutrophils # (Auto) 4.4, Lymphocytes # (Auto) 1.8, Monocytes # (Auto) 0.5, Eosinophils # (Auto) 0.2, Basophils # (Auto) 0.0, Calcium Level 8.3 L Microbiology Microbiology 10/14/18 Blood Culture - Preliminary, Resulted No Growth after 48 hours. All Specime... 10/14/18 Blood Culture - Preliminary, Resulted No Growth after 48 hours. All Specime... WILD SCOTT MD Oct 17, 2018 12:51
[2018-10-17] MEDS: LEVEMIR (INSULIN DETEMIR) 1 UNITS/0.01ML SC SCH (13:10)
[2018-10-17 14:00] VITALS: BP 108/59
[2018-10-17] MEDS ORDERED: HumaLOG INSULIN (NovoLOG) PER UNIT SC SCH (21:00)
[2018-10-17] MEDS: MONTELUKAST 10 MG TAB PO SCH (21:16)
[2018-10-17] MEDS: LORATADINE 10 MG TAB PO SCH (21:16)
[2018-10-17] MEDS: ACETAMINOPHEN TAB 650MG DOSE (2X325MG) PO PRN (21:50)
[2018-10-17] MEDS: ONDANSETRON 4MG/2ML VIAL (J2405) IV PRN (21:51)
[2018-10-17 22:00] VITALS: BP 128/75
[2018-10-18 06:00] VITALS: BP 124/83
[2018-10-18 06:27] LABS: BASO % 0.6 % (0.0-1.0); EOS # 0.2 10^3/uL (0.0-0.50); EOS % 3.3 % (0.0-3.0); HEMATOCRIT 36.9 % (42.0-52.0); HEMOGLOBIN 12.4 g/dl (13.5-17.5); LYMPH % 29.7 % (24.0-44.0); MEAN CORPUSCULAR HEMOGLOBIN 29.2 pg (27.0-33.0); MEAN CORPUSCULAR HGB CONC 33.6 g/dl (32.0-36.5); MONO # 0.4 10^3/uL (0.0-0.8); MONO % 6.4 % (0.0-5.0); NEUTROPHILS # 3.9 10^3/uL (1.8-7.7); NEUTROPHILS % 59.1 % (36.0-66.0); PLATELET COUNT, AUTOMATED 251 10^3/uL (150-450); RED BLOOD COUNT 4.24 10^6/uL (4.30-6.10); WHITE BLOOD COUNT 6.7 10^3/uL (4.0-10.0)
[2018-10-18 06:51] LABS: BLOOD UREA NITROGEN 9 MG/DL (7-18); CARBON DIOXIDE LEVEL 29 MEQ/L (21-32); CHLORIDE LEVEL 101 MEQ/L (98-107); CREATININE FOR GFR 1.03 MG/DL (0.70-1.30); GLOMERULAR FILTRATION RATE > 60.0 (>56); GLUCOSE, FASTING 263 MG/DL (70-100); POTASSIUM SERUM 3.7 MEQ/L (3.5-5.1); SODIUM LEVEL 136 MEQ/L (136-145)
[2018-10-18] MEDS: ADVAIR HFA 230/21MCG INHALER INH SCH (07:33)
[2018-10-18] MEDS: TIOTROPIUM INHALER/CAPSULE (SPIRIVA) INH SCH (07:33)
[2018-10-18] MEDS ORDERED: GLIM4TAB PO (08:44)
[2018-10-18] MEDS: ASPIRIN 81 MG ENTERIC TAB PO SCH (09:49)
[2018-10-18] MEDS: PANTOPRAZOLE 40MG INJ (PROTONIX) (C9113) IV SCH (09:49)
[2018-10-18] MEDS: HEPARIN SOD (PORCINE) 5000 UNITS/ML VIAL SC SCH (09:49)
[2018-10-18] MEDS: oxyBUTYnin *DITROPAN XL* 5 MG TABCR PO SCH (09:49)
[2018-10-18] MEDS: LEVEMIR (INSULIN DETEMIR) 1 UNITS/0.01ML SC SCH (09:50)
[2018-10-18 09:51] VITALS: BP 126/76
[2018-10-18] MEDS: HumaLOG INSULIN (NovoLOG) PER UNIT SC SCH (09:51)
[2018-10-18] MEDS: ATENOLOL 25 MG TAB PO SCH (09:51)
--- NOTE | 2018-10-18 22:21 | DS.PDOC ---
Discharge Summary General Date of Admission Oct 15, 2018 at 23:43 Date of Discharge 10/18/18 Discharge Summary PROCEDURES PERFORMED DURING STAY: EGD: The esophagus was normal. The stomach was normal. The examined duodenum was normal. A medium diverticulum was found in the second portion of the duodenum DISCHARGE DIAGNOSES: Acute Pancreatitis etiology not determined yet Enlargement of pancreatic head with abnormal signal intensity no definite mass obesity KP on CPAP Diabetes Probable early cirrhosis as per CT due to RODAS transaminitis CAD Hypertension Hyperlipidemia COPD Pulmonary fibrosis Left adrenal adenoma bilateral renal cysts smoker BPH. COMPLICATIONS/CHIEF COMPLAINT: Pancreatic Mass. HISTORY OF PRESENT ILLNESS: Please see history and physical HOSPITAL COURSE: Mr. Corrigan is a 58 years old man who presents to the Er with c/o Abdominal pain, nausea and vomiting for about two and a half weeks. Pain was located in mid upper abdomen, and was severe in nature. Pt was on 09/18 in ER for the same reason. At the time, CT showed increased size of pancreatic head, but no other acute issues to explain the symptoms. This time CT report doesn't mention this finding. Lipase is moderately elevated at 772. pateint was admitted for possible Pancreatitis. MRCP was done and GI was consulted. Acute Pancreatitis MRCP noted. Pancreatic head and uncinate process enlarged with abnormal signal intensity but no definite mass will need further work up. No gall stones, s/p cholecystectomy . Could be related to drugs. Atorvastatin stopped. tolerating soft diet EGD done showed duodenal diverticulum. Further work up has been ordered by GI Hep B and Hep C negative. Transaminitis could be due to acute pancreatitis or fatty liver. May have early cirrhosis also as per CT . probably due to RODAS. CAD, continue ASA, betablocker statin stopped as could cause pancreatitis. KP on home CPAP, HTN, continue atenolol HLD, continue statin. Pulmonary Fibrosis and COPD continue advair, spiriva, albuterol, singulair. Left adrenal adenoma 1.8 cm stable Fatty liver and probably Early cirrhotic liver Bilateral renal cysts. stable Smoker counselled about quitting smoking. offered nicotine patch. Prostatic hyperplasia DISCHARGE MEDICATIONS: Please see below. ALLERGIES: Please see below. PHYSICAL EXAMINATION ON DISCHARGE: VITAL SIGNS: Please see below. General Exam: Positive: Alert, Cooperative, No Acute Distress Eye Exam: Positive: PERRLA ENT Exam: Positive: Atraumatic Neck Exam: Positive: Supple; Negative: JVD Chest Exam: Positive: coarse crackles at right base, Diminished Heart Exam: Positive: Rate Normal, Regular Rhythm; Negative: Murmurs Abdomen Exam: Positive: Normal bowel sounds, Soft, mild tenderness in epigastrium Extremity Exam: Positive: Normal pulses; Negative: Edema Skin Exam: Positive: Nl turgor and temperature; Negative: Rash, Breakdown Neuro Exam: Positive: Normal Speech, Strength at 5/5 X4 ext, Normal Tone Psych Exam: Positive: Mental status NL LABORATORY DATA: Please see below. ACTIVITY: [As tolerated]. DIET: Carb consistent, low fat DISPOSITION: 01 Home, Self-Care. DISCHARGE INSTRUCTIONS: Pmd in [address] Herron in 3 to 4 weeks DISCHARGE CONDITION: [Stable]. TIME SPENT ON DISCHARGE: 35 minutes. Vital Signs/I&Os Vital Signs Date Time Temp Pulse Resp B/P (MAP) Pulse Ox O2 Delivery O2 Flow Rate FiO2 10/18/18 09:51 68 126/76 10/18/18 06:00 97.9 18 95 10/14/18 21:30 Room Air I&O- Last 24 Hours up to 6 AM 10/18/18 06:00 Intake Total 2066 ml Output Total 3250 ml Balance -1184 ml Laboratory Data Labs 24H Laboratory Tests 2 10/18/18 05:06: Bedside Glucose (Misc Panel) 209H 10/18/18 06:00: Immature Granulocyte % (Auto) 0.9, White Blood Count 6.7, Red Blood Count 4.24L, Hemoglobin 12.4L, Hematocrit 36.9L, Mean Corpuscular Volume 87.0, Mean Corpuscular Hemoglobin 29.2, Mean Corpuscular Hemoglobin Concent 33.6, Red Cell Distribution Width 13.6, Platelet Count 251, Neutrophils (%) (Auto) 59.1, Lymphocytes (%) (Auto) 29.7, Monocytes (%) (Auto) 6.4H, Eosinophils (%) (Auto) 3.3H, Basophils (%) (Auto) 0.6, Neutrophils # (Auto) 3.9, Lymphocytes # (Auto) 2.0, Monocytes # (Auto) 0.4, Eosinophils # (Auto) 0.2, Basophils # (Auto) 0.0, Nucleated Red Blood Cells % (auto) 0.0, Anion Gap 6L, Glomerular Filtration Rate > 60.0, Blood Urea Nitrogen 9, Creatinine 1.03, Sodium Level 136, Potassium Level 3.7, Chloride Level 101, Carbon Dioxide Level 29, Calcium Level 9.0 CBC/BMP Laboratory Tests 10/18/18 06:00 Red Blood Count 4.24 L, Mean Corpuscular Volume 87.0, Mean Corpuscular Hemoglobin 29.2, Mean Corpuscular Hemoglobin Concent 33.6, Red Cell Distribution Width 13.6, Neutrophils (%) (Auto) 59.1, Lymphocytes (%) (Auto) 29.7, Monocytes (%) (Auto) 6.4 H, Eosinophils (%) (Auto) 3.3 H, Basophils (%) (Auto) 0.6, Neutrophils # (Auto) 3.9, Lymphocytes # (Auto) 2.0, Monocytes # (Auto) 0.4, Eosinophils # (Auto) 0.2, Basophils # (Auto) 0.0, Calcium Level 9.0 FSBS Laboratory Tests Test 10/18/18 05:06 Range/Units Bedside Glucose (Misc Panel) 209 70-105 MG/DL Microbiology Microbiology 10/14/18 Blood Culture - Preliminary, Resulted No Growth after 72 hours. All specime... 10/14/18 Blood Culture - Preliminary, Resulted No Growth after 72 hours. All specime... Discharge Medications Scheduled Ascorbic Acid (Ascorbic Acid) 500 Mg Tablet, 500 MG PO QHS, (Reported) Aspirin (Aspir 81) 81 Mg Tablet.dr, 81 MG PO DAILY, (Reported) Atenolol (Atenolol) 25 Mg Tablet, 25 MG PO DAILY, (Reported) Cinnamon Bark (Cinnamon) 500 Mg Capsule, 500 MG PO BID, (Reported) Glimepiride (Glimepiride) 4 Mg Tablet, 4 MG PO DAILY Gluc Cadena/Chondro Cadena A/Vit C/Mn (Glucosamine Chondroitin Tab) 1 Each Tablet, 1 TAB PO QHS, (Reported) Hydroxyzine HCl (Hydroxyzine HCl) 25 Mg Tablet, 25 MG PO QHS, (Reported) Loratadine (Loratadine) 10 Mg Tablet, 10 MG PO QHS, (Reported) Losartan Potassium (Losartan Potassium) 25 Mg Tablet, 25 MG PO DAILY, (Reported) Metformin HCl (Metformin HCl) 1,000 Mg Tablet, 1,000 MG PO BID, (Reported) Montelukast Sodium (Montelukast Sodium) 10 Mg Tablet, 10 MG PO QHS, (Reported) Omeprazole (Omeprazole) 20 Mg Capsule.dr, 20 MG PO DAILY, (Reported) Oxybutynin Chloride (Oxybutynin Chloride ER) 10 Mg Tab.er.24, 10 MG PO DAILY, (Reported) Salmeterol/Fluticasone (Advair 500-50 Diskus) 1 Each Blst.w.dev, 1 PUFF INH BID, (Reported) Sucralfate (Sucralfate) 1 Gm Tablet, 1 GM PO ACHS, (Reported) Umeclidinium [place] (Incruse Ellipta) 62.5 Mcg Blst.w.dev, 1 PUFF INH QHS, (Reported) Allergies Coded Allergies: Mustard (Verified Allergy, Severe, ANAPHYLAXIS, 10/15/18) garlic (Verified Allergy, Severe, ANAPHYLAXIS, 10/15/18) olive oil (Verified Allergy, Severe, ANAPHYLAXIS, 10/15/18) WILD SCOTT MD Oct 18, 2018 22:21
[2018-10-19] MEDS ORDERED: SUCR1TA PO (15:07)
== END 2018-10-18 11:03 | disposition home or self-care (01) | DRG 282 ==
LOC: M ED 15:02 → M ED INP 18:34 → M MSPAV 22:05 → OBSVTOIN 10-15 23:43
PROVIDERS: ADMIT Internal Medicine; ATTEND Internal Medicine Nephrology
PROC: 0DJ08ZZ Inspection of Upper Intestinal Tract, Via Natural or Artificial Opening Endoscopic (ICD-10-PCS; principal; 2018-10-16 16:30)
DX: K85.90 Acute pancreatitis without necrosis or infection, unspecified (principal); J84.10 Pulmonary fibrosis, unspecified; K76.0 Fatty (change of) liver, not elsewhere classified; N28.1 Cyst of kidney, acquired; G47.33 Obstructive sleep apnea (adult) (pediatric); I10 Essential (primary) hypertension; E78.5 Hyperlipidemia, unspecified; J44.9 Chronic obstructive pulmonary disease, unspecified; K29.00 Acute gastritis without bleeding; E66.9 Obesity, unspecified; R74.0 Nonspecific elevation of levels of transaminase and lactic acid dehydrogenase [LDH]; K29.80 Duodenitis without bleeding; K86.2 Cyst of pancreas; F17.200 Nicotine dependence, unspecified, uncomplicated; I25.10 Atherosclerotic heart disease of native coronary artery without angina pectoris; K57.10 Diverticulosis of small intestine without perforation or abscess without bleeding; D35.02 Benign neoplasm of left adrenal gland; Z90.49 Acquired absence of other specified parts of digestive tract; Z79.82 Long term (current) use of aspirin; Z79.899 Other long term (current) drug therapy; Z91.018 Allergy to other foods

== ENCOUNTER → 2018-11-25 | Outpatient (CLI) | payer OTHER ==
[~2018-11-25] MED LIST changes: +ADME100I2; +ALBU83IN NEB; +ASCO500T PO; +ASPI81TA85 PO; +GLIM4TAB5 PO; +GLUCTAB6 PO; +INCR1INH INH; +LORA-622 PO; +NEUR600T PO; +OXYB10TA23 PO; +SUCR1TA PO; +VENTAER INH
[2018-11-25 09:18] LABS: BASO # 0.1 10^3/uL (0.0-0.2); BASO % 0.7 % (0.0-1.0); EOS # 0.2 10^3/uL (0.0-0.50); EOS % 1.8 % (0.0-3.0); HEMATOCRIT 38.9 % (42.0-52.0); LYMPH # 1.9 10^3/uL (1.5-4.5); LYMPH % 22.5 % (24.0-44.0); MEAN CORPUSCULAR HEMOGLOBIN 28.6 pg (27.0-33.0); MEAN CORPUSCULAR HGB CONC 33.4 g/dl (32.0-36.5); MEAN CORPUSCULAR VOLUME 85.5 fl (80.0-96.0); MONO # 0.6 10^3/uL (0.0-0.8); MONO % 6.7 % (0.0-5.0); NEUTROPHILS # 5.6 10^3/uL (1.8-7.7); NEUTROPHILS % 67.4 % (36.0-66.0); PLATELET COUNT, AUTOMATED 241 10^3/uL (150-450); RED BLOOD COUNT 4.55 10^6/uL (4.30-6.10); WHITE BLOOD COUNT 8.2 10^3/uL (4.0-10.0)
[2018-11-25 09:27] LABS: INR 0.96; PROTHROMBIN TIME 12.4 SECONDS (11.8-14.0)
[2018-11-25 09:47] LABS: ALBUMIN 3.2 GM/DL (3.2-5.2); ALT/SGPT 75 U/L (12-78); AMYLASE 45 U/L (25-115); BILIRUBIN,TOTAL 0.3 MG/DL (0.2-1.0); BLOOD UREA NITROGEN 12 MG/DL (7-18); CALCIUM LEVEL 9.4 MG/DL (8.5-10.1); CARBON DIOXIDE LEVEL 29 MEQ/L (21-32); CHLORIDE LEVEL 103 MEQ/L (98-107); CREATININE FOR GFR 0.78 MG/DL (0.70-1.30); GLOMERULAR FILTRATION RATE > 60.0 (>56); GLUCOSE, FASTING 135 MG/DL (70-100); LIPASE 187 U/L (73-393); POTASSIUM SERUM 4.2 MEQ/L (3.5-5.1); SODIUM LEVEL 137 MEQ/L (136-145)
[2018-11-27 00:06] LABS: FATS NEUTRAL Normal (.); FATS TOTAL Normal (.)
[2018-11-27 14:07] LABS: CHROMOGRANIN A 9 nmol/L (0-5); GASTRIN 229 pg/mL (0-115); TISSUE TRANSGLUTAMINASE IgA <2 U/mL (0-3)
== END ==
LOC: M LAB 08:28
PROVIDERS: ATTEND Internal Medicine Gastroenterology
DX: K85.90 Acute pancreatitis without necrosis or infection, unspecified (principal)

== ENCOUNTER → 2018-11-25 | Outpatient (CLI) | payer OTHER | LOC: M LAB 07:44 | PROVIDERS: ATTEND Family Medicine | DX: K85.90 Acute pancreatitis without necrosis or infection, unspecified (principal) ==

== ENCOUNTER 2018-11-30 08:55 | Emergency (ER) | payer OTHER ==
[~2018-11-30] VITALS: Ht 167.6 cm; Wt 88.2 kg
[~2018-11-30 08:55] MED LIST changes: -ADME100I2; -ALBU83IN NEB; +GLIM4TAB PO; -GLIM4TAB5 PO; -NEUR600T PO; +OXYB10TA PO; -OXYB10TA23 PO; -VENTAER INH
[2018-11-30] MEDS ORDERED: NS 1,000 ML IV ONE (09:15)
[2018-11-30 09:31] LABS: BASO % 0.5 % (0.0-1.0); EOS # 0.2 10^3/uL (0.0-0.50); HEMOGLOBIN 13.4 g/dl (13.5-17.5); LYMPH # 1.9 10^3/uL (1.5-4.5); LYMPH % 23.3 % (24.0-44.0); MEAN CORPUSCULAR HEMOGLOBIN 29.6 pg (27.0-33.0); MEAN CORPUSCULAR HGB CONC 33.5 g/dl (32.0-36.5); MEAN CORPUSCULAR VOLUME 88.5 fl (80.0-96.0); MONO # 0.5 10^3/uL (0.0-0.8); MONO % 6.7 % (0.0-5.0); NEUTROPHILS # 5.4 10^3/uL (1.8-7.7); NEUTROPHILS % 66.9 % (36.0-66.0); PLATELET COUNT, AUTOMATED 279 10^3/uL (150-450); RED BLOOD COUNT 4.52 10^6/uL (4.30-6.10); WHITE BLOOD COUNT 8.1 10^3/uL (4.0-10.0)
[2018-11-30 10:08] LABS: ALBUMIN 3.2 GM/DL (3.2-5.2); ALT/SGPT 57 U/L (12-78); AMYLASE 46 U/L (25-115); BILIRUBIN,DIRECT < 0.1 MG/DL (0.0-0.2); BILIRUBIN,TOTAL 0.3 MG/DL (0.2-1.0); BLOOD UREA NITROGEN 14 MG/DL (7-18); CALCIUM LEVEL 9.5 MG/DL (8.5-10.1); CARBON DIOXIDE LEVEL 28 MEQ/L (21-32); CHLORIDE LEVEL 99 MEQ/L (98-107); CREATININE FOR GFR 1.02 MG/DL (0.70-1.30); GLOMERULAR FILTRATION RATE > 60.0 (>56); GLUCOSE, FASTING 165 MG/DL (70-100); LIPASE 157 U/L (73-393); POTASSIUM SERUM 4.3 MEQ/L (3.5-5.1); SODIUM LEVEL 135 MEQ/L (136-145); TOTAL PROTEIN 7.2 GM/DL (6.4-8.2)
[2018-11-30] MEDS ORDERED: MORPHINE 2 MG/ML 1ML SYRINGE (J2270) IV ONE (10:45)
[2018-11-30] MEDS ORDERED: ISOVUE-370 76% 100ML VIAL (Q9967) As Ordered ONE (10:53)
--- NOTE | 2018-11-30 12:27 | REP ---
CT ABDOMEN AND PELVIS WITH IV CONTRAST: TECHNIQUE: Axial contrast enhanced images from the lung bases to the pubic symphysis using 100 mL Isovue 370 intravenous contrast material with multiplanar reformations. COMPARISON: MRI 10/15/[address] 10/08/2018. Visualized lung bases demonstrate mild fibrotic changes with bullous change in the left lower lobe laterally. There is diffuse fatty infiltration of the liver. The patient has had a prior cholecystectomy. Calcified granulomas are seen in the spleen. There is no biliary dilatation. There is a left adrenal nodule, which is unchanged compatible with an adenoma. The pancreas is unchanged in appearance. Several small cysts are seen in each kidney. There is no hydronephrosis. There is mild atherosclerotic calcification of the abdominal aorta without aneurysm. No adenopathy is seen. There is no free air or free fluid. No bowel wall thickening is seen. The urinary bladder is well distended and unremarkable. IMPRESSION: No acute change when compared to prior studies. No free air or free fluid. No acute inflammatory changes. Electronically Signed by Yovani Dill MD 12/01/2018 09:37 P
[2018-11-30 12:59] VITALS: BP 123/67
== END 2018-11-30 14:01 | disposition home or self-care (01) ==
LOC: M ED 09:28
DX: R10.9 Unspecified abdominal pain (principal); I25.2 Old myocardial infarction; I10 Essential (primary) hypertension; R51 Headache; J44.9 Chronic obstructive pulmonary disease, unspecified; G47.30 Sleep apnea, unspecified; N40.0 Benign prostatic hyperplasia without lower urinary tract symptoms; K21.9 Gastro-esophageal reflux disease without esophagitis; Z72.0 Tobacco use; Z79.82 Long term (current) use of aspirin; Z79.84 Long term (current) use of oral hypoglycemic drugs; Z79.899 Other long term (current) drug therapy; Z91.018 Allergy to other foods
CPT/HCPCS: 74177; 80048; 80076; 82150; 83690; 85025; 96361; 96374; 99284; J2270; Q9967

== ENCOUNTER → 2018-12-13 | Outpatient (CLI) | payer OTHER ==
[2018-12-13 08:12] LABS: BASO # 0.1 10^3/uL (0.0-0.2); BASO % 0.9 % (0.0-1.0); EOS # 0.3 10^3/uL (0.0-0.50); EOS % 4.3 % (0.0-3.0); HEMATOCRIT 41.9 % (42.0-52.0); HEMOGLOBIN 13.8 g/dl (13.5-17.5); LYMPH # 1.6 10^3/uL (1.5-4.5); MEAN CORPUSCULAR HEMOGLOBIN 29.6 pg (27.0-33.0); MEAN CORPUSCULAR HGB CONC 32.9 g/dl (32.0-36.5); MEAN CORPUSCULAR VOLUME 89.9 fl (80.0-96.0); MONO # 0.5 10^3/uL (0.0-0.8); MONO % 6.9 % (0.0-5.0); NEUTROPHILS # 4.5 10^3/uL (1.8-7.7); NEUTROPHILS % 64.2 % (36.0-66.0); PLATELET COUNT, AUTOMATED 265 10^3/uL (150-450); RED BLOOD COUNT 4.66 10^6/uL (4.30-6.10)
[2018-12-13 08:35] LABS: ALBUMIN 3.2 GM/DL (3.2-5.2); ALT/SGPT 51 U/L (12-78); BILIRUBIN,TOTAL 0.3 MG/DL (0.2-1.0); BLOOD UREA NITROGEN 15 MG/DL (7-18); CALCIUM LEVEL 9.1 MG/DL (8.5-10.1); CARBON DIOXIDE LEVEL 31 MEQ/L (21-32); CHLORIDE LEVEL 100 MEQ/L (98-107); CREATININE FOR GFR 1.14 MG/DL (0.70-1.30); GLOMERULAR FILTRATION RATE > 60.0 (>56); GLUCOSE, FASTING 130 MG/DL (70-100); POTASSIUM SERUM 4.1 MEQ/L (3.5-5.1); SODIUM LEVEL 138 MEQ/L (136-145); TOTAL PROTEIN 7.2 GM/DL (6.4-8.2)
--- NOTE | 2018-12-13 08:46 | ECGEPIP ---
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
== END ==
LOC: M LAB 07:09
PROVIDERS: ATTEND Internal Medicine Gastroenterology
DX: K86.2 Cyst of pancreas (principal)

== ENCOUNTER 2019-01-17 08:16 | Day surgery (SDC) | payer OTHER ==
[~2019-01-17] VITALS: Ht 167.6 cm; Wt 90.7 kg
[~2019-01-17 08:16] MED LIST changes: +ADME100I2; +ALBU83IN NEB; +NEUR600T PO; +NS 1,000 ML IV ONE; -OXYB10TA PO; +OXYB10TA2 PO; +VENTAER INH
[2019-01-17] MEDS ORDERED: PROPOFOL 200 MG/20 ML VIAL As Ordered ONE (08:28)
[2019-01-17] MEDS ORDERED: LIDOCAINE 2% INJ 100 MG/5 ML SDV (FOR ANES.) As Ordered ONE (09:04)
--- NOTE | 2019-01-17 09:24 | ROOR ---
Patient Name: Ramos Corrigan Procedure Date: 01/17/2019 8:56 AM Date of : 1960 Age: 58 Room: [facility] Gender: Male Note Status: Finalized Procedure: Colonoscopy Indications: Chronic diarrhea Providers: Germain HERRON MD Referring MD: CELIA LONGORIA MD Requesting Provider: Medicines: Monitored Anesthesia Care Complications: No immediate complications. Procedure: Pre-Anesthesia Assessment: - The heart rate, respiratory rate, oxygen saturations, blood pressure, adequacy of pulmonary ventilation, and response to care were monitored throughout the procedure. The Colonoscope was introduced through the anus and advanced to 10 cm into the ileum. The colonoscopy was performed without difficulty. The patient tolerated the procedure well. The quality of the bowel preparation was good. Findings: The perianal and digital rectal examinations were normal. A 6 mm polyp was found in the sigmoid colon. The polyp was semi-sessile. The polyp was removed with a cold snare. Resection and retrieval were complete. To prevent bleeding after the polypectomy, two hemostatic clips were successfully placed. Retroflexion in the right colon was performed. The exam was otherwise normal throughout the examined colon. The terminal ileum appeared normal. Biopsies for histology were taken with a cold forceps from the entire colon for evaluation of microscopic colitis. Impression: - One 6 mm polyp in the sigmoid colon, removed with a cold snare. Resected and retrieved. Clips were placed. - Small internal hemorrhoids. - The colon is otherwise normal. - The examined portion of the ileum was normal. - Biopsies were taken with a cold forceps from the entire colon for evaluation of microscopic colitis. Recommendation: - Return to my office in 1 month. - To discuss todays findings, my office will call you in the next few days to schedule a follow up appointment. Germain Herron MD Germain HERRON MD 01/17/2019 9:24:04 AM Electronically signed by Germain HERRON MD Number of Addenda: 0 Note Initiated On: 01/17/2019 8:56 AM Estimated Blood Loss: Estimated blood loss: none.
[2019-01-17 09:45] VITALS: BP 143/84
== END 2019-01-17 09:55 | disposition home or self-care (01) ==
LOC: M OPP 08:16
PROVIDERS: ATTEND Internal Medicine Gastroenterology
DX: K63.5 Polyp of colon (principal); K52.9 Noninfective gastroenteritis and colitis, unspecified; I21.9 Acute myocardial infarction, unspecified; G47.30 Sleep apnea, unspecified; F17.210 Nicotine dependence, cigarettes, uncomplicated; Z79.82 Long term (current) use of aspirin; Z79.84 Long term (current) use of oral hypoglycemic drugs; Z79.899 Other long term (current) drug therapy; Z91.018 Allergy to other foods

== ENCOUNTER → 2019-02-17 | Outpatient (REF) | payer OTHER ==
[~2019-02-17] MED LIST changes: -GLIM4TAB PO; +GLIM4TAB5 PO; -NS 1,000 ML IV ONE; -OXYB10TA2 PO; +OXYB10TA23 PO
[2019-02-17 15:26] LABS: CLOSTRIDIUM DIFFICILE PCR NEGATIVE (NEGATIVE)
== END ==
LOC: M LAB REF 13:28
PROVIDERS: ATTEND Internal Medicine Gastroenterology
DX: R19.7 Diarrhea, unspecified (principal)

== ENCOUNTER → 2019-02-24 | Outpatient (CLI) | payer OTHER ==
[~2019-02-24] MED LIST changes: +GLIM4TAB3 PO; -GLIM4TAB5 PO; +OXYB10TA2 PO; -OXYB10TA23 PO
--- NOTE | 2019-02-26 11:00 | REP ---
INDIUM-111 RADIONUCLIDE OCTREOSCAN WITH SPECT IMAGING : HISTORY: Increased chromogranin and gastrin. Diarrhea and weight loss. Comparison CT study November 30, 2018. TECHNIQUE: 6.3 mCi of Indium-111 Octreoscan is administered. 5-hour, 24-hour, and 48- hour whole body images are acquired. Planar anterior and posterior oblique images of the chest, abdomen and pelvis are acquired. A SPECT acquisition of the abdomen and pelvis is acquired. SCINTIGRAPHIC FINDINGS: There is no distribution of uptake in the liver, spleen urinary tract and colon. No focal area of increased uptake is seen within the liver on whole body, oblique planar, or SPECT images. There is no abnormal uptake in the region of the pancreas or in the abdominal lymph nodes. IMPRESSION: Negative Octreoscan study. Electronically Signed by Dru Reyes MD 02/26/2019 01:45 P
== END ==
LOC: M RAD 07:44
PROVIDERS: ATTEND Internal Medicine Gastroenterology
DX: E16.4 Increased secretion of gastrin (principal)
CPT/HCPCS: 78804; A9572

== ENCOUNTER → 2019-03-20 | Outpatient (CLI) | payer OTHER ==
--- NOTE | 2019-03-21 08:49 | REP ---
Clinical: Lung screening. History smoking. Comparison: 02/27/2018 Technique: Axial low-dose noncontrast images from the thoracic inlet to the upper abdomen using lung screening technique. Findings: The lung javeir are well-aerated. Calcified lymph nodes and minimal scattered scarring as well as few calcified densities are compatible with prior granulomatous disease. No consolidation, significant nodule or mass lesion is appreciated. No pleural effusion/reaction or pneumothorax. Tracheobronchial tree is patent. Mediastinum demonstrates mild atherosclerotic changes of the coronary arteries without cardiomegaly. Impression: Lung-RADS category I. No nodule or suspicious abnormality. Management recommendations include annual low-dose CT reevaluation. Electronically Signed by Qamar Cardenas MD 03/21/2019 08:40 A
== END ==
LOC: M RAD 07:43
PROVIDERS: ATTEND Internal Medicine Pulmonary Disease
DX: Z12.2 Encounter for screening for malignant neoplasm of respiratory organs (principal); Z87.891 Personal history of nicotine dependence

== ENCOUNTER → 2019-04-09 | Outpatient (CLI) | payer OTHER ==
[2019-04-09 07:46] LABS: APPEARANCE, URINE CLEAR (CLEAR); BACTERIA, URINE AUTO NEGATIVE (NEGATIVE); BILIRUBIN, URINE AUTO NEGATIVE (NEGATIVE); BLOOD, URINE BLOOD NEGATIVE (NEGATIVE); COLOR, URINE YELLOW (YELLOW); GLUCOSE, URINE (UA) AUTO NEGATIVE (NEGATIVE); KETONE, URINE AUTO NEGATIVE (NEGATIVE); LEUKOCYTE ESTERASE, URINE AUTO NEGATIVE (NEGATIVE); NITRITE, URINE AUTO NEGATIVE (NEGATIVE); PROTEIN, URINE AUTO NEGATIVE (NEGATIVE); RBC, URINE AUTO 1 /HPF (0-3); SPECIFIC GRAVITY URINE AUTO 1.015 (1.002-1.035); SQUAMOUS EPITHELIAL CELL UR AU 0 /HPF (0-6); UROBILINOGEN, URINE AUTO 0.2 mg/dL (0.0-2.0); WBC, URINE AUTO 0 /HPF (0-3)
[2019-04-09 07:47] LABS: BASO % 0.5 % (0.0-1.0); EOS # 0.3 10^3/uL (0.0-0.5); EOS % 3.3 % (0.0-3.0); HEMATOCRIT 45.7 % (42.0-52.0); LYMPH # 2.2 10^3/uL (1.5-5.0); LYMPH % 27.8 % (24.0-44.0); MEAN CORPUSCULAR HGB CONC 32.8 g/dl (32.0-36.5); MEAN CORPUSCULAR VOLUME 88.2 fl (80.0-96.0); MONO # 0.4 10^3/uL (0.0-0.8); MONO % 5.5 % (0.0-5.0); NEUTROPHILS % 61.9 % (36.0-66.0); PLATELET COUNT, AUTOMATED 293 10^3/uL (150-450); RED BLOOD COUNT 5.18 10^6/uL (4.30-6.10); WHITE BLOOD COUNT 8.1 10^3/uL (4.0-10.0)
[2019-04-09 08:18] LABS: ALBUMIN 3.4 GM/DL (3.2-5.2); ALT/SGPT 40 U/L (12-78); BILIRUBIN,TOTAL 0.3 MG/DL (0.2-1.0); BLOOD UREA NITROGEN 16 MG/DL (7-18); CALCIUM LEVEL 9.3 MG/DL (8.5-10.1); CARBON DIOXIDE LEVEL 29 MEQ/L (21-32); CHLORIDE LEVEL 104 MEQ/L (98-107); CHOLESTEROL LEVEL 235 MG/DL (<200); CHOLESTEROL RISK RATIO 6.714 (<5); CREATININE FOR GFR 1.29 MG/DL (0.70-1.30); FREE T4 0.84 NG/DL (0.76-1.46); GLOMERULAR FILTRATION RATE > 60.0 (>56); GLUCOSE, FASTING 143 MG/DL (70-100); HDL CHOLESTEROL 35 MG/DL (>40); LDL CHOLESTEROL 139 MG/DL (<100); NON-HDL-C 200 MG/DL; POTASSIUM SERUM 4.7 MEQ/L (3.5-5.1); SODIUM LEVEL 136 MEQ/L (136-145); TOTAL PROTEIN 7.5 GM/DL (6.4-8.2); TRIGLYCERIDES LEVEL 303 MG/DL (<150)
[2019-04-09 08:20] LABS: MALB URINE SIEMENS 13.2 MG/L; MAU/CREAT RATIO 9.4 MCG/MG (0.0-30.0)
[2019-04-09 09:40] LABS: FOLATE > 24.0 NG/ML (>5.4); TOTAL 25(OH) VITAMIN D 27.8 NG/ML (30.0-100.0)
[2019-04-09 09:49] LABS: HEMOGLOBIN A1c 7.1 %
== END ==
LOC: M LAB 07:11
PROVIDERS: ATTEND Family Medicine
DX: D52.9 Folate deficiency anemia, unspecified (principal); E78.5 Hyperlipidemia, unspecified; I10 Essential (primary) hypertension; E55.9 Vitamin D deficiency, unspecified; E11.9 Type 2 diabetes mellitus without complications; K21.9 Gastro-esophageal reflux disease without esophagitis

== ENCOUNTER → 2019-04-09 | Outpatient (CLI) | payer OTHER ==
[2019-04-14 10:37] LABS: CHROMOGRANIN A 2 nmol/L (0-5); GASTRIN 42 pg/mL (0-115)
== END ==
LOC: M LAB 07:08
PROVIDERS: ATTEND Internal Medicine Gastroenterology
DX: D13.6 Benign neoplasm of pancreas (principal)

== ENCOUNTER → 2019-04-17 | Outpatient (CLI) | payer OTHER ==
--- NOTE | 2019-04-22 10:25 | REP ---
KUB ABDOMEN SITZ MARKER STUDY: KUB abdomen is performed 5 days following ingestion of sitz marker capsule. Bowel gas pattern is normal. No dilated small bowel loops were seen. Metallic clips are seen in the right upper quadrant status post cholecystectomy. No sitz markers are visualized indicating grossly normal colonic transit. Vascular calcifications and phleboliths are seen in the pelvis. There are degenerative changes of the spine. IMPRESSION: No sitz markers identified in the GI tract 5 days following ingestion of sitz marker capsule. This indicates grossly normal colonic transit. Electronically Signed by Yovani Dill MD 04/23/2019 10:34 A
== END ==
LOC: M RAD 11:57
PROVIDERS: ATTEND Internal Medicine Gastroenterology
DX: R19.7 Diarrhea, unspecified (principal)

== ENCOUNTER 2019-07-01 07:26 | Emergency (ER) | payer OTHER ==
[~2019-07-01] VITALS: Ht 170.2 cm; Wt 90.4 kg
[~2019-07-01 07:26] MED LIST changes: -GLIM4TAB3 PO; +GLIM4TAB5 PO; -MONT10TA2 PO; +MONT10TA4 PO; -OXYB10TA2 PO; +OXYB10TA23 PO
[2019-07-01] MEDS ORDERED: CREO3600 (07:39)
[2019-07-01] MEDS ORDERED: ONDA-83 (07:39)
[2019-07-01] MEDS ORDERED: LORA-674 (07:39)
[2019-07-01] MEDS ORDERED: ADV500INH INH (07:39)
[2019-07-01] MEDS ORDERED: NS 1,000 ML IV ONE (08:00)
[2019-07-01 08:18] LABS: HEMOGLOBIN 14.9 g/dl (13.5-17.5); MEAN CORPUSCULAR HEMOGLOBIN 28.6 pg (27.0-33.0); MEAN CORPUSCULAR HGB CONC 33.1 g/dl (32.0-36.5); MEAN CORPUSCULAR VOLUME 86.4 fl (80.0-96.0); PLATELET COUNT, AUTOMATED 245 10^3/uL (150-450); RED BLOOD COUNT 5.21 10^6/uL (4.30-6.10); WHITE BLOOD COUNT 8.1 10^3/uL (4.0-10.0)
--- NOTE | 2019-07-01 08:45 | REP ---
Clinical: Hematuria. Technique: Axial noncontrast images from the lung bases to the pubic symphysis with coronal and sagittal re-formations. Comparison: 11/30/2018 Findings: Liver, spleen, pancreas, bilateral adrenal glands and kidneys are normal / stable. Stable left adrenal adenoma and renal hypodensities suggesting simple and complex cysts again noted. Evidence of prior cholecystectomy. No hydronephrosis, acute perinephric stranding or obstructing renal calculi identified. The enteric system is without obstruction or acute inflammatory process. Normal terminal ileum and appendix are identified in the right lower quadrant. Scattered colonic diverticula noted without acute diverticulitis. Pelvis demonstrates normal bladder and prominent prostate gland with coarse parenchymal calcifications. No ascites. No free air. No adenopathy. Abdominal aorta without aneurysm. Musculoskeletal structures without focal osseous abnormality. Lung bases demonstrate chronic change. Impression: 1. No acute abdominopelvic pathology appreciated. 2. Stable left adrenal adenoma and renal hypodensities suggesting cysts. 3. Scattered diverticula without acute diverticulitis. 4. Early prostatomegaly. Electronically Signed by Qamar Cardenas MD 07/01/2019 08:37 A
[2019-07-01] MEDS ORDERED: MORPHINE 2 MG/ML 1ML VIAL (J2270) As Ordered ONE (08:54)
[2019-07-01 08:57] LABS: ALBUMIN 3.4 GM/DL (3.2-5.2); ALT/SGPT 34 U/L (12-78); BILIRUBIN,TOTAL 0.2 MG/DL (0.2-1.0); BLOOD UREA NITROGEN 16 MG/DL (7-18); CALCIUM LEVEL 8.8 MG/DL (8.5-10.1); CARBON DIOXIDE LEVEL 31 MEQ/L (21-32); CHLORIDE LEVEL 104 MEQ/L (98-107); CREATININE FOR GFR 1.08 MG/DL (0.70-1.30); GLOMERULAR FILTRATION RATE > 60.0 (>56); GLUCOSE, FASTING 118 MG/DL (70-100); POTASSIUM SERUM 4.7 MEQ/L (3.5-5.1); SODIUM LEVEL 139 MEQ/L (136-145); TOTAL PROTEIN 7.4 GM/DL (6.4-8.2)
[2019-07-01] MEDS ORDERED: MORPHINE 2 MG/ML 1ML VIAL (J2270) IV PRN (09:00)
[2019-07-01] MEDS ORDERED: ISOVUE-370 76% 100ML VIAL (Q9967) As Ordered ONE (10:22)
--- NOTE | 2019-07-01 11:09 | REP ---
Clinical: Hematuria. Technique: Contrast enhanced and delayed images of the abdomen and pelvis using 100 ml Isovue 370 intravenous contrast material with coronal and sagittal re-formations. Volume rendered 3-D CT urogram obtained. Findings: Kidneys demonstrate symmetric enhancement and excretion to the collecting system with bilateral rounded hypodensities measuring up to approximately 1.3 cm and likely representing cysts. No perinephric stranding, hydroureteronephrosis, obvious nephrolithiasis or obstructing ureteral calculi. Fatty infiltration to the liver suggested without focal hepatic lesion. Spleen, pancreas, and left adrenal gland are normal. Evidence for prior cholecystectomy. Stable 1.7 cm left adrenal nodule consistent with adenoma and unchanged from 2016. The enteric system is without obstruction or acute inflammatory process. Scattered diverticula noted without acute diverticulitis. Pelvis demonstrates normal bladder and mild enlargement to the prostate gland with coarse central calcifications. No ascites. No free air. No adenopathy. Abdominal aorta without aneurysm or dissection. Musculoskeletal structures demonstrate age-related changes without acute focal abnormality. Impression: 1. Kidneys demonstrate bilateral cysts. No further urinary tract pathology noted. 2. Hepatic steatosis. 3. Stable left adrenal adenoma. 4. Colonic diverticula without acute diverticulitis. 5. Early prostatomegaly. Electronically Signed by Qamar Cardenas MD 07/01/2019 11:00 A
[2019-07-01 12:20] VITALS: BP 113/76
--- NOTE | 2019-07-02 11:13 | ED PDOC ---
Post-Departure Follow-Up radiology rpeort faxed to pat gaspar Sarah MD Jul 02, 2019 11:13
== END 2019-07-01 12:22 | disposition home or self-care (01) ==
LOC: M ED 07:26
DX: R31.9 Hematuria, unspecified (principal); I10 Essential (primary) hypertension; E78.5 Hyperlipidemia, unspecified; J44.9 Chronic obstructive pulmonary disease, unspecified; G47.33 Obstructive sleep apnea (adult) (pediatric); K75.81 Nonalcoholic steatohepatitis (NASH); Z87.891 Personal history of nicotine dependence; Z87.442 Personal history of urinary calculi; Z91.018 Allergy to other foods; Z79.899 Other long term (current) drug therapy; Z79.82 Long term (current) use of aspirin; Z79.51 Long term (current) use of inhaled steroids
CPT/HCPCS: 74176; 74177; 80053; 81001; 85027; 96361; 96374; 99284; J2270; Q9967

== ENCOUNTER → 2019-07-22 | Outpatient (CLI) | payer OTHER ==
[~2019-07-22] MED LIST changes: +CREO3600; +LORA-674; +ONDA-83
[2019-07-22 08:24] LABS: BASO # 0.1 10^3/uL (0.0-0.2); BASO % 0.7 % (0.0-1.0); EOS # 0.2 10^3/uL (0.0-0.5); EOS % 2.9 % (0.0-3.0); HEMOGLOBIN 15.6 g/dl (13.5-17.5); LYMPH % 27.1 % (24.0-44.0); MEAN CORPUSCULAR HEMOGLOBIN 28.4 pg (27.0-33.0); MEAN CORPUSCULAR HGB CONC 32.5 g/dl (32.0-36.5); MEAN CORPUSCULAR VOLUME 87.3 fl (80.0-96.0); MONO # 0.5 10^3/uL (0.0-0.8); MONO % 7.1 % (0.0-5.0); NEUTROPHILS # 4.4 10^3/uL (1.5-8.5); NEUTROPHILS % 61.8 % (36.0-66.0); PLATELET COUNT, AUTOMATED 254 10^3/uL (150-450); WHITE BLOOD COUNT 7.2 10^3/uL (4.0-10.0)
[2019-07-22 08:34] LABS: APPEARANCE, URINE CLEAR (CLEAR); BACTERIA, URINE AUTO NEGATIVE (NEGATIVE); BILIRUBIN, URINE AUTO NEGATIVE (NEGATIVE); BLOOD, URINE BLOOD NEGATIVE (NEGATIVE); COLOR, URINE YELLOW (YELLOW); GLUCOSE, URINE (UA) AUTO NEGATIVE (NEGATIVE); KETONE, URINE AUTO NEGATIVE (NEGATIVE); LEUKOCYTE ESTERASE, URINE AUTO NEGATIVE (NEGATIVE); MUCUS, URINE SMALL (NEGATIVE); NITRITE, URINE AUTO NEGATIVE (NEGATIVE); PROTEIN, URINE AUTO NEGATIVE (NEGATIVE); RBC, URINE AUTO 1 /HPF (0-3); SPECIFIC GRAVITY URINE AUTO 1.021 (1.002-1.035); SQUAMOUS EPITHELIAL CELL UR AU 0 /HPF (0-6); UROBILINOGEN, URINE AUTO 0.2 mg/dL (0.0-2.0); WBC, URINE AUTO 1 /HPF (0-3)
[2019-07-22 09:02] LABS: ALBUMIN 3.5 GM/DL (3.2-5.2); ALT/SGPT 35 U/L (12-78); BILIRUBIN,TOTAL 0.2 MG/DL (0.2-1.0); BLOOD UREA NITROGEN 17 MG/DL (7-18); CALCIUM LEVEL 9.2 MG/DL (8.5-10.1); CARBON DIOXIDE LEVEL 31 MEQ/L (21-32); CHLORIDE LEVEL 102 MEQ/L (98-107); CHOLESTEROL LEVEL 275 MG/DL (<200); CHOLESTEROL RISK RATIO 8.088 (<5); FREE T4 1.04 NG/DL (0.76-1.46); GLOMERULAR FILTRATION RATE > 60.0 (>56); GLUCOSE, FASTING 119 MG/DL (70-100); HDL CHOLESTEROL 34 MG/DL (>40); LDL CHOLESTEROL 175 MG/DL (<100); NON-HDL-C 241 MG/DL; POTASSIUM SERUM 4.4 MEQ/L (3.5-5.1); SODIUM LEVEL 138 MEQ/L (136-145); TOTAL PROTEIN 7.4 GM/DL (6.4-8.2); TRIGLYCERIDES LEVEL 329 MG/DL (<150)
[2019-07-22 09:36] LABS: MALB URINE SIEMENS 35.5 MG/L; MAU/CREAT RATIO 14.3 MCG/MG (0.0-30.0)
[2019-07-22 10:13] LABS: FOLATE 15.3 NG/ML (>5.4); TOTAL 25(OH) VITAMIN D 23.8 NG/ML (30.0-100.0)
[2019-07-22 18:57] LABS: HEMOGLOBIN A1c 6.7 %
== END ==
LOC: M LAB 07:46
PROVIDERS: ATTEND Family Medicine
DX: D50.9 Iron deficiency anemia, unspecified (principal)

== ENCOUNTER → 2020-01-12 | Outpatient (CLI) | payer OTHER ==
[~2020-01-12] MED LIST changes: -ASPI81TA85 PO; +ASPI81TA86 PO
[2020-01-12 15:56] LABS: BLOOD UREA NITROGEN 14 MG/DL (7-18); GLOMERULAR FILTRATION RATE > 60.0 (>56)
[2020-01-12 16:33] LABS: CA19-9 TUMOR MARKER,CARBOHYDRA 5.4 U/ML (<35.0)
== END ==
LOC: M LAB 15:02
PROVIDERS: ATTEND Internal Medicine Gastroenterology
DX: K86.81 Exocrine pancreatic insufficiency (principal)

== ENCOUNTER → 2020-01-26 | Outpatient (CLI) | payer OTHER ==
[~2020-01-26] MED LIST changes: +PROHANCE 279.3MG/ML 15ML VIAL As Ordered ONE; +PROHANCE 279.3MG/ML 5ML VIAL As Ordered ONE
--- NOTE | 2020-01-26 18:57 | REPVR ---
PROCEDURE INFORMATION: Exam: MR Abdomen Without and With Contrast Exam date and time: 01/26/2020 1:37 PM Age: 59 years old Clinical indication: Condition or disease; Pancreatic condition; Cyst; Patient HX: F/u; Additional info: Neoplasm of pancreas, pancreatic cyst TECHNIQUE: Imaging protocol: MR of the abdomen without and with intravenous contrast. Contrast material: PROHANCE; Contrast volume: 17 ml; Contrast route: INTRAVENOUS (IV); COMPARISON: MRI ABD W/O FOL WITH 10/15/2018 12:04 PM FINDINGS: Liver: No mass. Gallbladder and bile ducts: Unremarkable. No stones. No ductal dilation. Pancreas: Previously seen ill-defined signal in the inferior posterior pancreatic head no longer visualized. Stable 3 mm cyst at the junction of the body and tail of pancreas be Spleen: Unremarkable. No splenomegaly. Adrenals: Unremarkable. No mass. Kidneys and ureters: Bilateral renal cysts. Stomach and bowel: Visualized stomach and intestines are unremarkable. Intraperitoneal space: No free fluid. Arteries: No abdominal aortic aneurysm. Bones/joints: Unremarkable. Soft tissues: Unremarkable. IMPRESSION: No acute abnormality. Electronically signed by: Burak Chaparro On 01/26/2020 18:57:12 PM
== END ==
LOC: M RAD 12:23
PROVIDERS: ATTEND Internal Medicine Gastroenterology
DX: K86.2 Cyst of pancreas (principal); N28.1 Cyst of kidney, acquired
CPT/HCPCS: 74183; A9576

== ENCOUNTER → 2020-04-20 | Outpatient (CLI) | payer OTHER ==
[~2020-04-20] MED LIST changes: -MONT10TA4 PO; +MONT5TAB2 PO; -PROHANCE 279.3MG/ML 15ML VIAL As Ordered ONE; -PROHANCE 279.3MG/ML 5ML VIAL As Ordered ONE
--- NOTE | 2020-04-21 20:12 | REP ---
INDICATION: PERSONAL HISTORY OF NICOTINE DEPENDENCE. COMPARISON: Low-dose lung screening chest CT studies dated 03/20/2019 and 02/27/2018.. TECHNIQUE: The study is performed without IV contrast. The images are presented at lung windowing only. FINDINGS: There are no nodules or masses. There are mediastinal calcifications, unchanged, compatible with old calcified granulomas. There are several large bulla in the left costophrenic angle, unchanged. There are no infiltrates or pleural effusions. IMPRESSION: There are no nodules or masses. This is a category [address] low-dose lung screening CT of the chest. Probability of malignancy is less than 1%. Depending on risk factors consider continued annual follow-up low-dose lung screening chest CT. <Electronically signed by Yovani Brito > 04/21/202007
== END ==
LOC: M RAD 08:58
PROVIDERS: ATTEND Internal Medicine Pulmonary Disease
DX: Z12.2 Encounter for screening for malignant neoplasm of respiratory organs (principal); Z87.891 Personal history of nicotine dependence

== ENCOUNTER → 2020-04-27 | Outpatient (CLI) | payer OTHER ==
--- NOTE | 2020-04-27 13:52 | REP ---
INDICATION: CHRONIC OBSTRUCTIVE PULMONARY DISEASE, UNSPECIFIED. COMPARISON: PA and lateral chest dated 05/09/2016, low-dose lung screening chest CT dated 04/20/2020 and low-dose lung screening chest CT dated 03/20/[address] dated 10/19/2015. The lung javier are clear. TECHNIQUE: Upright PA and lateral chest. FINDINGS: The lung javier are clear. The cardiac size is normal. There are faintly visible calcified granulomas in the mediastinum, better appreciated on the comparison CT studies. The mayra, mediastinum, and skeletal structures are unremarkable. There are large bulla in the left costophrenic angle, better appreciated by CT and plain films. IMPRESSION: Calcified granulomas in the mediastinum. Large bulla in the left costophrenic angle. <Electronically signed by Yovani Brito > 04/27/20 0100
== END ==
LOC: M RAD 12:02
PROVIDERS: ATTEND Internal Medicine Pulmonary Disease
DX: J44.9 Chronic obstructive pulmonary disease, unspecified (principal); J98.4 Other disorders of lung

== ENCOUNTER → 2020-06-03 | Outpatient (CLI) | payer SELFPAY ==
[~2020-06-03] MED LIST changes: +MONT10TA10 PO; -MONT5TAB2 PO
== END ==
LOC: M LABSMTC 12:19
PROVIDERS: ATTEND Pediatrics
DX: Z20.822 Contact with and (suspected) exposure to COVID-19 (principal)

== ENCOUNTER → 2021-03-25 | Outpatient (REF) | payer OTHER | LOC: M LAB REF 17:03 | PROVIDERS: ATTEND Ophthalmology | DX: D23.112 Other benign neoplasm of skin of right lower eyelid, including canthus (principal) ==

== ENCOUNTER → 2021-05-09 | Outpatient (CLI) | payer OTHER ==
[~2021-05-09] MED LIST changes: +LOSA25TA13 PO; -LOSA25TA14 PO; -MONT10TA10 PO; +MONT10TA97 PO; +OMEP-173 PO; -OMEP-218 PO
== END ==
LOC: M RAD 09:12
PROVIDERS: ATTEND Internal Medicine Pulmonary Disease
DX: Z87.891 Personal history of nicotine dependence (principal)

== ENCOUNTER → 2021-08-24 | Outpatient (CLI) | payer OTHER ==
[2021-08-24 12:49] LABS: ALBUMIN 3.2 GM/DL (3.2-5.2); ALT/SGPT 38 U/L (12-78); BILIRUBIN,TOTAL 0.4 MG/DL (0.2-1.0); BLOOD UREA NITROGEN 13 MG/DL (7-18); CALCIUM LEVEL 9.5 MG/DL (8.8-10.2); CARBON DIOXIDE LEVEL 28 MEQ/L (21-32); CHLORIDE LEVEL 102 MEQ/L (98-107); CREATININE FOR GFR 0.89 MG/DL (0.70-1.30); GLOMERULAR FILTRATION RATE > 60.0 (>49); GLUCOSE, FASTING 120 MG/DL (70-100); LIPASE 133 U/L (73-393); POTASSIUM SERUM 4.1 MEQ/L (3.5-5.1); SODIUM LEVEL 137 MEQ/L (136-145)
[2021-08-24 13:26] LABS: CA19-9 TUMOR MARKER,CARBOHYDRA 11.4 U/ML (<35.0)
== END ==
LOC: M LAB 11:52
PROVIDERS: ATTEND Internal Medicine Gastroenterology
DX: D37.8 Neoplasm of uncertain behavior of other specified digestive organs (principal)

== ENCOUNTER → 2021-09-14 | Outpatient (CLI) | payer OTHER | LOC: M RAD 11:26 | PROVIDERS: ATTEND Internal Medicine Pulmonary Disease | DX: J44.9 Chronic obstructive pulmonary disease, unspecified (principal) ==

== ENCOUNTER → 2021-09-28 | Outpatient (REF) | payer OTHER ==
[2021-09-28 14:27] LABS: BASO # 0.1 10^3/uL (0.0-0.2); BASO % 0.7 % (0.0-1.0); EOS # 0.2 10^3/uL (0.0-0.5); EOS % 2.2 % (0.0-3.0); HEMOGLOBIN 13.7 g/dl (13.5-17.5); LYMPH # 1.8 10^3/uL (1.5-5.0); LYMPH % 23.4 % (24.0-44.0); MEAN CORPUSCULAR HGB CONC 34.3 g/dl (32.0-36.5); MEAN CORPUSCULAR VOLUME 87.5 fl (80.0-96.0); MONO # 0.5 10^3/uL (0.0-0.8); MONO % 6.4 % (2.0-8.0); NEUTROPHILS # 5.1 10^3/uL (1.5-8.5); NEUTROPHILS % 66.4 % (36.0-66.0); PLATELET COUNT, AUTOMATED 342 10^3/uL (150-450); RED BLOOD COUNT 4.57 10^6/uL (4.30-6.10); WHITE BLOOD COUNT 7.6 10^3/uL (4.0-10.0)
== END ==
LOC: M LAB REF 12:52
PROVIDERS: ATTEND Internal Medicine Pulmonary Disease
DX: J44.9 Chronic obstructive pulmonary disease, unspecified (principal); J45.50 Severe persistent asthma, uncomplicated

== ENCOUNTER → 2022-06-07 | Outpatient (CLI) | payer OTHER ==
[~2022-06-07] MED LIST changes: +ALBU2.5V10 NEB; -ALBU83IN NEB; -GLUCTAB6 PO; +GLUCTAB7 PO
== END ==
LOC: M RAD 10:16
PROVIDERS: ATTEND Internal Medicine Pulmonary Disease
DX: Z87.891 Personal history of nicotine dependence (principal)

== ENCOUNTER → 2022-06-27 | Outpatient (CLI) | payer OTHER ==
[~2022-06-27] MED LIST changes: -ADME100I2; +ADME100I2 SQ; +ASPI81TA26 PO
== END ==
LOC: M RAD 11:23
PROVIDERS: ATTEND Internal Medicine Gastroenterology
DX: K31.84 Gastroparesis (principal)
CPT/HCPCS: 78264; A9541

== ENCOUNTER → 2022-07-06 | Outpatient (CLI) | payer OTHER | LOC: M LABSMTC 11:04 | PROVIDERS: ATTEND Anesthesiology | DX: Z01.812 Encounter for preprocedural laboratory examination (principal); Z11.52 Encounter for screening for COVID-19 ==

== ENCOUNTER 2022-07-11 10:44 | Day surgery (SDC) | payer OTHER ==
[~2022-07-11] VITALS: Ht 167.6 cm; Wt 82.3 kg
[~2022-07-11 10:44] MED LIST changes: +NS 1,000 ML IV ONE
[2022-07-11] MEDS ORDERED: propofoL 200 MG/20 ML VIAL As Ordered ONE (12:37)
[2022-07-11] MEDS ORDERED: LIDOCAINE 2% 100MG/5ML SDV (FOR ANES.) As Ordered ONE (12:37)
[2022-07-11] MEDS ORDERED: GLYCOPYRROLATE INJ 0.2 MG/ML 2 ML VIAL As Ordered ONE (13:14)
[2022-07-11] MEDS ORDERED: ePHEDrine INJ 50MG/ML 1ML VIAL As Ordered ONE (13:27)
[2022-07-11 14:07] VITALS: BP 101/67
== END 2022-07-11 14:07 | disposition home or self-care (01) ==
LOC: M OPP 10:44
PROVIDERS: ATTEND Internal Medicine Gastroenterology
DX: K29.70 Gastritis, unspecified, without bleeding (principal); K31.84 Gastroparesis; R11.0 Nausea; J45.909 Unspecified asthma, uncomplicated; N40.0 Benign prostatic hyperplasia without lower urinary tract symptoms; E11.9 Type 2 diabetes mellitus without complications; G47.33 Obstructive sleep apnea (adult) (pediatric); I25.2 Old myocardial infarction; Z99.89 Dependence on other enabling machines and devices; Z79.4 Long term (current) use of insulin; Z79.51 Long term (current) use of inhaled steroids; Z79.82 Long term (current) use of aspirin; Z79.899 Other long term (current) drug therapy; Z90.49 Acquired absence of other specified parts of digestive tract

== ENCOUNTER → 2022-08-31 | Outpatient (CLI) | payer OTHER ==
[~2022-08-31] MED LIST changes: -NS 1,000 ML IV ONE
[2022-08-31 09:25] LABS: BLOOD UREA NITROGEN 19 MG/DL (9-23); CREATININE FOR GFR 0.94 MG/DL (0.70-1.30); GLOMERULAR FILTRATION RATE > 60.0 (>49)
== END ==
LOC: M LAB 08:10
PROVIDERS: ATTEND Otolaryngology
DX: H90.3 Sensorineural hearing loss, bilateral (principal); H93.13 Tinnitus, bilateral

== ENCOUNTER → 2022-09-04 | Outpatient (CLI) | payer OTHER ==
[~2022-09-04] MED LIST changes: +PROHANCE 279.3MG/ML 15ML VIAL ONE; +PROHANCE 279.3MG/ML 5ML VIAL ONE
== END ==
LOC: M PLAIMG 09:18
PROVIDERS: ATTEND Otolaryngology
DX: H90.3 Sensorineural hearing loss, bilateral (principal); H93.13 Tinnitus, bilateral
CPT/HCPCS: 70553; A9576

== ENCOUNTER → 2023-07-25 | Outpatient (REF) | payer OTHER ==
[~2023-07-25] MED LIST changes: +LORA-1041; -LORA-674; -OXYB5TAB10 PO; +OXYB5TAB14 PO; -PROHANCE 279.3MG/ML 15ML VIAL ONE; -PROHANCE 279.3MG/ML 5ML VIAL ONE
[2023-07-25 18:47] LABS: CREATININE, URINE 21.7 MG/DL; MALB URINE SIEMENS < 3.0 MG/L; MAU/CREAT RATIO 13.8 MCG/MG (0.0-30.0)
== END ==
LOC: M LAB REF 17:07
PROVIDERS: ATTEND Nurse Practitioner Family
DX: E11.65 Type 2 diabetes mellitus with hyperglycemia (principal)

== ENCOUNTER 2023-09-24 07:46 | Emergency (ER) | payer OTHER ==
[~2023-09-24] VITALS: Ht 167.6 cm; Wt 80.0 kg
[2023-09-24] MEDS ORDERED: BASA100I (07:57)
[2023-09-24] MEDS ORDERED: ATOR80TA59 (07:57)
[2023-09-24] MEDS ORDERED: PRED10TA2 (07:57)
[2023-09-24] MEDS: IBUPROFEN 600MG TAB PO ONE (09:08)
[2023-09-24] MEDS ORDERED: MED REC IN PROGRESS XX SCH (09:35)
[2023-09-24 09:41] VITALS: BP 128/78; TEMP 98.1; O2SAT 97
== END 2023-09-24 10:08 | disposition home or self-care (01) ==
LOC: M ED 07:46
DX: S99.911A Unspecified injury of right ankle, initial encounter (principal); Y92.019 Unspecified place in single-family (private) house as the place of occurrence of the external cause; Y93.9 Activity, unspecified; Y99.9 Unspecified external cause status; I25.2 Old myocardial infarction; I10 Essential (primary) hypertension; E11.9 Type 2 diabetes mellitus without complications; E78.00 Pure hypercholesterolemia, unspecified; J44.9 Chronic obstructive pulmonary disease, unspecified; F17.210 Nicotine dependence, cigarettes, uncomplicated; Z91.018 Allergy to other foods; Z79.51 Long term (current) use of inhaled steroids; Z79.1 Long term (current) use of non-steroidal anti-inflammatories (NSAID); Z79.52 Long term (current) use of systemic steroids; Z79.84 Long term (current) use of oral hypoglycemic drugs; Z79.899 Other long term (current) drug therapy

== ENCOUNTER → 2023-10-17 | Outpatient (CLI) | payer OTHER ==
[~2023-10-17] MED LIST changes: +ATOR80TA59; +BASA100I; +PRED10TA2
== END ==
LOC: M RAD 12:51
PROVIDERS: ATTEND Internal Medicine Pulmonary Disease
DX: Z87.891 Personal history of nicotine dependence (principal)

== ENCOUNTER → 2024-11-18 | Outpatient (CLI) | payer OTHER ==
[~2024-11-18] MED LIST changes: -ADV500INH INH; +ADVA1AER10 INH; +LORA-1164 PO; -LORA-622 PO
== END ==
LOC: M RAD 07:32
PROVIDERS: ATTEND Internal Medicine Pulmonary Disease
DX: Z87.891 Personal history of nicotine dependence (principal)

== ENCOUNTER → 2025-04-17 | Outpatient (CLI) | payer OTHER ==
[~2025-04-17] MED LIST changes: +PROHANCE 279.3MG/ML 15ML VIAL ONE
== END ==
LOC: M PLAIMG 13:33
PROVIDERS: ATTEND Internal Medicine Gastroenterology
DX: D37.8 Neoplasm of uncertain behavior of other specified digestive organs (principal); K85.90 Acute pancreatitis without necrosis or infection, unspecified; K86.81 Exocrine pancreatic insufficiency
CPT/HCPCS: 74183; A9579